=== PATIENT | female | born 1985 | race Caucasian/White ===

== ENCOUNTER 2018-11-27 03:09 | Emergency (ER) | payer OTHER ==
[~2018-11-27] VITALS: Ht 154.9 cm; Wt 74.4 kg
--- OUTSIDE RECORDS SUMMARY | ~2018-11-27 | XMS | Encounter Summary ---
Demographics + + + | Address | [address] | | | [place] [address] | + + + | Home Phone | | + + + | Preferred Language | Unknown | + + + | Marital Status | Single | + + + | Jewish Affiliation | NON | + + + | Race | White | + + + | Ethnic Group | Not or | + + + Author + + + | Author | [facility] | + + + | Organization | [facility] | + + + | Address | Unknown | + + + | Phone | Unavailable | + + + Support + + +---------+ + | Name | Relationship | Address | Phone | + + +---------+ + | Nancy Nesbitt | ECON | Unknown | | + + +---------+ + Care Team Providers + +------+ + | Care Guest Relations Agent Name | Role | Phone | + +------+ + | Renard Easley DO | PCP | | + +------+ + Reason for Visit + + + | Reason | Comments | + + + | Pre-operative | | | evaluation | | + + + Encounter Details +--------+---------+ + + + | Date | Type | Department | Care Team | Description | +--------+---------+ + + + | 03/26/ | Office | Neurosurgery at | Nehal Lloyd MD | MS (multiple | | 2010 | Visit | [facility] [address] | [address] | sclerosis) ([facility]); | | | | Ave Mailcode: [address] | [place], [place] | Trigeminal neuralgia | | | | [facility] | [address] | | | | | and Healing, | [phone] | | | | | [facility] | | | | | | Floor [facility] [place] | | | | | | [address] | | | | | | [phone] | | | +--------+---------+ + + + Social History + +-------+ +--------+------+ | Tobacco Use | Types | Packs/Day | Years | Date | | | | | Used | | + +-------+ +--------+------+ | Current Every Day | | 0.5 | | | | Smoker | | | | | + +-------+ +--------+------+ + +---+---+---+ | Smokeless Tobacco: | | | | | Never Used | | | | + +---+---+---+ + + +---------+ + | Alcohol Use | Drinks/Week | oz/Week | Comments | + + +---------+ + | No | | | | + + +---------+ + + + + | Sex Assigned at | Date Recorded | | | | + + + | Not on file | | + + + + + + + | Job Start Date | Occupation | Industry | + + + + | Not on file | Not on file | Not on file | + + + + + + + + | Travel History | Travel Start | Travel End | + + + + + + | No recent travel history available. | + + documented as of this encounter Last Filed Vital Signs + + + + + | Vital Sign | Reading | Time Taken | Comments | + + + + + | Blood Pressure | 140/97 | 03/26/2010 1:20 PM | | | | | PST | | + + + + + | Pulse | 114 | 03/26/2010 1:20 PM | | | | | PST | | + + + + + | Temperature | - | - | | + + + + + | Respiratory Rate | 14 | 03/26/2010 1:20 PM | | | | | PST | | + + + + + | Oxygen Saturation | - | - | | + + + + + | Inhaled Oxygen | - | - | | | Concentration | | | | + + + + + | Weight | 105.2 kg (232 lb) | 03/26/2010 1:20 PM | | | | | PST | | + + + + + | Height | 162.6 cm (5' 4") | 03/26/2010 1:20 PM | | | | | PST | | + + + + + | Body Mass Index | 39.82 | 03/26/2010 1:20 PM | | | | | PST | | + + + + + documented in this encounter Progress Notes Mary Hallman MD - 03/26/2010 5:05 PM PSTMrs. Marques Gallego comes in today for a preoperative evaluation for right RFL for V2 trigeminal neuralgia due to MS. Her questions regarding the procedure, hospital stay have been answered. I have discussed the risks of the percutaneous radiofrequency trigeminal gangliolysis (PRTG ), also known as the radiofrequency lesion (RFL), procedure with the patient at length. Th e goal of the procedure is to reduce or eliminate the trigeminal neuralgia. The risks inclu de bleeding, increased neurologic deficit, sensory loss, anesthesia dolorosa, corneal kerati tis, and failure to relieve the pain. The patient understands and accepts these risks, and after all questions were answered, wished to proceed with the operation. She has been consented and is ready for the procedure. documented in this encounter Plan of Treatment Not on filedocumented as of this encounter Visit Diagnoses + + | Diagnosis | + + | MS (multiple sclerosis) (HCC) Multiple sclerosis | + + | Trigeminal neuralgia | + + documented in this encounter
--- OUTSIDE RECORDS SUMMARY | ~2018-11-27 | XMS | Encounter Summary ---
Demographics + + + | Address | [address] | | | [place] [address] | + + + | Home Phone | | + + + | Preferred Language | Unknown | + + + | Marital Status | Single | + + + | Gnosticist Affiliation | NON | + + + | Race | White | + + + | Ethnic Group | Not or | + + + Author + + + | Author | [facility] | + + + | Organization | [facility] | + + + | Address | Unknown | + + + | Phone | Unavailable | + + + Support + + +---------+ + | Name | Relationship | Address | Phone | + + +---------+ + | Nancy Nesbitt | ECON | Unknown | | + + +---------+ + Care Team Providers + +------+ + | Care Equipment Associate Name | Role | Phone | + +------+ + | Renard Easley DO | PCP | | + +------+ + Reason for Visit + + + | Reason | Comments | + + + | Headache | | + + + Encounter Details +--------+ + + + + | Date | Type | Department | Care Team | Description | +--------+ + + + + | 04/17/ | Telephone | Neurosurgery at | Nehal Lloyd MD | Headache | | 2010 | | [facility] [address] | [address] | | | | | Ave Mailcode: [address] | [place], [place] | | | | | [facility] | [address] | | | | | and Healing, | [phone] | | | | | [facility] , 8th | | | | | | Floor [place], [place] | | | | | | [address] | | | | | | [phone] | | | +--------+ + + + + Social History + +-------+ [...] + + documented as of this encounter Plan of Treatment Not on filedocumented as of this encounter Visit Diagnoses Not on filedocumented in this encounter"
--- OUTSIDE RECORDS SUMMARY | ~2018-11-27 | XMS | Encounter Summary ---
Demographics + + + | Address | [address] | | | [place] [address] | + + + | Home Phone | | + + + | Preferred Language | Unknown | + + + | Marital Status | Single | + + + | Shinto Affiliation | NON | + + + | Race | White | + + + | Ethnic Group | Not or | + + + Author + + + | Author | [facility] | + + + | Organization | [facility] | + + + | Address | Unknown | + + + | Phone | Unavailable | + + + Support + + +---------+ + | Name | Relationship | Address | Phone | + + +---------+ + | Nancy Nesbitt | ECON | Unknown | | + + +---------+ + Care Team Providers + +------+ + | Care Sap Data Architect Name | Role | Phone | + [...] | | | Ave Mailcode: [address] | [place], [place] | | | | | [facility] | [address] | | | | | and Healing, | [phone] | | | | | [facility] , [address]th | | | | | | Floor [place], [place] | | | | | | [address] | | | | | | [phone] | | | +--------+ + + + [...]
--- OUTSIDE RECORDS SUMMARY | ~2018-11-27 | XMS | Clinical Summary ---
Demographics + + + | Address | [address] | | | [place] [address] | + + + | Home Phone | | + + + | Preferred Language | Unknown | + + + | Marital Status | Single | + + + | Mormon Affiliation | Unknown | + + + | Race | Unknown | + + + | Ethnic Group | Unknown | + + + Author + + + | Author | [facility] [employer] (Historical as of | | | 09-30-18) | + + + | Organization | [facility] [employer] (Historical as of | | | 09-30-18) | + + + | Address | Unknown | + + + | Phone | Unavailable | + + + Support + + +---------+ + | Name | Relationship | Address | Phone | + + +---------+ + | Sheila Zee | ECON | Unknown | | + + +---------+ + Care Team Providers + +------+ + | Care Senior Analyst Market Intelligence Name | Role | Phone | + +------+ + | Jose Guadalupe Easley DO | PP | | + +------+ + Allergies + + + + + + | Active Allergy | Reactions | Severity | Noted | Comments | | | | | Date | | + + + + + + | Baclofen | Rash | Medium | 08/30/19 | | | | | | 15 | | + + + + + + | Prochlorperazine | Anxiety | Low | 04/29/19 | | | | | | 17 | | + + + + + + | Penicillins | Other (See Comments) | Medium | 08/30/19 | Childhood allergy | | | | | 15 | | + + + + + + | Metoclopramide | Other (See Comments) | Medium | 03/03/19 | Panic attack per | | | | | 15 | patient | + + + + + + Current Medications + + +---------+---------+------+------+-------+ | Prescription | Sig. | Disp. | Refills | Star | End | Statu | | | | | | t | Date | s | | | | | | Date | | | + + +---------+---------+------+------+-------+ | | Take 1 tablet by | | | | | Activ | | levonorgestrel-ethin | mouth daily. | | | | | e | | yl estradiol | | | | | | | | (LYBREL) 90-20 MCG | | | | | | | | per tablet | | | | | | | + + +---------+---------+------+------+-------+ | Cholecalciferol | Take by mouth. | | | | | Activ | | (VITAMIN D-3) 5000 | | | | | | e | | UNITS TABS | | | | | | | + + +---------+---------+------+------+-------+ | ibuprofen (MOTRIN) | Take 800 mg by mouth | | | | | Activ | | 800 MG tablet | every 6 (six) hours | | | | | e | | | as needed for Pain. | | | | | | + + +---------+---------+------+------+-------+ | gabapentin | take UP TO 3 | 270 | 5 | 03/1 | | Activ | | (NEURONTIN) 300 MG | capsules by mouth | capsule | | 1/20 | | e | | capsule | three times a day | | | 19 | | | + + +---------+---------+------+------+-------+ | fingolimod | Take 1 capsule by | 30 | 5 | 06/1 | | Activ | | (GILENYA) 0.5 mg | mouth daily. | capsule | | 7/20 | | e | | capsule | | | | 19 | | | + + +---------+---------+------+------+-------+ | traMADol (ULTRAM) | Take 1 tablet by | 30 | 2 | 06/1 | | Activ | | 50 MG tablet | mouth every 6 (six) | tablet | | 7/20 | | e | | | hours as needed for | | | 19 | | | | | Pain. | | | | | | + + +---------+---------+------+------+-------+ | tiZANidine | take 2 tablets by | 60 | 4 | 07/15 | | Activ | | (ZANAFLEX) 4 MG | mouth NIGHTLY | tablet | | 10/03 | | e | | tablet | | | | 19 | | | + + +---------+---------+------+------+-------+ Active Problems Not on file Family History + +------+--------+ + | Relation | Name | Status | Comments | + +------+--------+ + | Father | | Alive | | + +------+--------+ + | Mother | | Alive | | + +------+--------+ + Social History + +-------+ +--------+------+ | Tobacco Use | Types | Packs/Day | Years | Date | | | | | Used | | + +-------+ +--------+------+ | Current Every Day | | 0.25 | 15 | | | Smoker | | | | | + +-------+ +--------+------+ + +---+---+---+ | Smokeless Tobacco: | | | | | Never Used | | | | + +---+---+---+ + + | Tobacco Cessation: Ready to Quit: No | + + + + +---------+ + | Alcohol Use | Drinks/We | oz/Week | Comments | | | ek | | | + + +---------+ + | No | | | | + + +---------+ + + + + | Sex Assigned at | Date Recorded | | | | + + + | Not on file | | + + + Last Filed Vital Signs + + + + | Vital Sign | Reading | Time Taken | + + + + | Blood Pressure | 131/89 | 07/31/2018 1:05 PM PDT | + + + + | Pulse | 67 | 07/31/2018 1:05 PM PDT | + + + + | Temperature | 37.2 C (99 F) | 11/10/2015 1:00 PM PDT | + + + + | Respiratory Rate | 18 | 11/10/2015 1:00 PM PDT | + + + + | Oxygen Saturation | 99% | 07/31/2018 1:05 PM PDT | + + + + | Inhaled Oxygen | - | - | | Concentration | | | + + + + | Weight | 75 kg (165 lb 4.8 | 07/31/2018 1:05 PM PDT | | | oz) | | + + + + | Height | 154.9 cm (5' 1") | 07/31/2018 1:05 PM PDT | + + + + | Body Mass Index | 31.23 | 07/31/2018 1:05 PM PDT | + + + + Plan of Treatment +--------+---------+ + + + | Date | Type | Specialty | Care Team | Description | +--------+---------+ + + + | 01/30/ | Office | | Lillie Pace, | | | 2018 | Visit | | [facility] | | | | | | [place] | | | | | | [address] | | | | | | | | +--------+---------+ + + + + + + + + | Health Maintenance | Due Date | Last Done | Comments | + + + + + | Vaccine: | | | | | Pneumococcal 19-64 | 4 | | | | (PPSV23 only) Medium | | | | | Risk (1 of 1 - | | | | | PPSV23) | | | | + + + + + | Cervical Cancer | | | | | Screening (Pap) | 5 | | | + + + + + | Vaccine: Influenza | | 11/25/2017 | | | (#1) | 9 | | | + + + + + | Vaccine: | | 03/02/2018, 09/17/1997 | | | Dtap/Tdap/Td (3 - | 9 | | | | Td) | | | | + + + + + Results Not on filefrom Last 3 Months Insurance + +--------+ +------+-------+ + | Payer | Benefi | Subscriber | Type | Phone | Address | | | t Plan | ID | | | | | | / | | | | | | | Group | | | | | + +--------+ +------+-------+ + | MEDICAID | JAEER | [id number] | | | [address] | | | [place] | | | | [place] | | | [place] | | | | [address] | | | 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
--- OUTSIDE RECORDS SUMMARY | ~2018-11-27 | XMS | Encounter Summary ---
Demographics + + + | Address | [address] | | | [place] [address] | + + + | Home Phone | | + + + | Preferred Language | Unknown | + + + | Marital Status | Single | + + + | Jehovah'S Witness Affiliation | Unknown | + + + | Race | Unknown | + + + | Ethnic Group | Unknown | + + + Author + + + | Author | [facility] | | | and [place] | + + + | Organization | [facility] | | | and [place] | + + + | Address | Unknown | + + + | Phone | Unavailable | + + + Support + + +---------+ + | Name | Relationship | Address | Phone | + + +---------+ + | Sheila Zee | ECON | Unknown | | + + +---------+ + Care Team Providers + +------+ + | Care Food Assembler Name | Role | Phone | + +------+ + | Renard Easley DO | PCP | | + +------+ + Reason for Visit +--------+ + | Reason | Comments | +--------+ + | Other | numbness in L foot/leg | +--------+ + Encounter Details +--------+---------+ + + + | Date | Type | Department | Care Team | Description | +--------+---------+ + + + | 09/05/ | Office | [facility] [facility] | Nicolle, | Right leg numbness | | 2019 | Visit | [facility] | Dilip, [address] | (Primary Dx); MS | | | | [facility] [address] [place] | (multiple sclerosis) | | | | [address] [place], | [place] [address] | (HCC) | | | | [place] [address] | [phone] | | | | | [phone] | | | +--------+---------+ + + + Social History + + + +--------+------+ | Tobacco Use | Types | Packs/Day | Years | Date | | | | | Used | | + + + +--------+------+ | Current Some Day | Cigarettes | 0.25 | 6 | | | Smoker | | | | | + + + +--------+------+ + +---+---+---+ | Smokeless Tobacco: | | | | | Never Used | | | | + +---+---+---+ + + | Tobacco Cessation: Ready to Quit: No; Counseling Given: No | + + + + +---------+ [...] + + + | Blood Pressure | 118/68 | 09/05/20181558 PDT | + + + + | Pulse | 71 | 09/05/20181558 PDT | + + + + | Temperature | 36.6 C (97.8 F) | 09/05/20181558 PDT | + + + + | Respiratory Rate | 16 | 09/05/20181558 PDT | + + + + | Oxygen Saturation | 100% | 09/05/20181558 PDT | + + + + | Inhaled Oxygen | - | - | | Concentration | | | + + + + | Weight | - | - | + + + + | Height | - | - | + + + + | Body Mass Index | - | - | + + + + documented in this encounter Progress Notes Dilip Valverde, BEBO - 09/05/2018 1600 PDTFormatting of this note might be different f rom the original. Chief Complaint Patient presents with Other numbness in L foot/leg Assessment 1. Right leg numbness - gabapentin (NEURONTIN) 600 MG tablet; 2 tabs PO TID Dispense: 180 tablet; Refill: 4 2. MS (multiple sclerosis) ([facility]) - gabapentin (NEURONTIN) 600 MG tablet; 2 tabs PO TID Dispense: 180 tablet; Refill: 4 Plan Patient will try increased dose of gabapentin until her next neurology appointment Subjective: Patient ID: Marques Gallego is a 33 y.o. female who is new to me, presents with compl aints of numbness, pins and needles in her right lower leg. Patient stated that she has been having this for years and the numbness is radiating from her foot up through her calf. She has a diagnosis of MS and is being managed by a neurologist in [place], [place]. She stated th at she has not discussed this with her but is due for a follow-up visit in January. She st ated that she is on gabapentin but this dose is not helping her. Objective: BP 118/68 | Pulse 71 | Temp 36.6 C (97.8 F) (Temporal) | Resp 16 | SpO2 100% Physical Exam Constitutional: She appears well-developed. Cardiovascular: Normal heart sounds. Musculoskeletal: Right lower leg: She exhibits tenderness. Legs: Neurological: She is alert. Social History Socioeconomic History Marital status: Single Spouse name: Not on file Number of children: Not on file Years of education: Not on file Highest education level: Not on file Social Needs Financial resource strain: Not on file Food insecurity - worry: Not on file Food insecurity - inability: Not on file Transportation needs - medical: Not on file Transportation needs - non-medical: Not on file Occupational History Not on file Tobacco Use Smoking status: Current Some Day Smoker Packs/day: 0.25 Years: 6.00 Pack years: 1.50 Types: Cigarettes Smokeless tobacco: Never Used Substance and Sexual Activity Alcohol use: No Drug use: Yes Types: Marijuana Comment: Smoking Sexual activity: Not Currently Partners: Male control/protection: Pill Other Topics Concern Not on file Social History Narrative Not on file Past Medical History: Diagnosis Date Anemia Hydronephrosis, left Left-sided trigeminal neuralgia MS (multiple sclerosis) (HCC) Nephrolithiasis Opioid dependence (HCC) Orthostatic hypotension Paronychia of right middle finger Tobacco dependence Allergies Allergen Reactions Baclofen Rash Metoclopramide Other (See Comments) Panic attack per patient Penicillins Other (See Comments) Don't know Prochlorperazine Anxiety Electronically signed by BEBO Gonzales 09/05/2018 16:50 Note: Part of this report was transcribed using voice recognition software. Every effort wa s made to ensure accuracy. However, inadvertent computerized fisher dip net errors may be pre sent documented in this encounter Plan of Treatment +--------+---------+ + + + | Date | Type | Specialty | Care Team | Description | +--------+---------+ + + + | 01/30/ | Office | Neurology | Lillie Pace, | | | 2018 | Visit | | [facility] | | | | | | [address] | | | | | | [place] [address] | | | | | | [phone] | | | | | | | | +--------+---------+ + + + documented as of this encounter Visit Diagnoses + + | Diagnosis | + + | Right leg numbness - Primary Disturbance of skin sensation | + + | MS (multiple sclerosis) (HCC) Multiple sclerosis | + + documented in this encounter"
--- OUTSIDE RECORDS SUMMARY | ~2018-11-27 | XMS | Encounter Summary ---
Demographics + + + | Address | [address] | | | [place] [address] | + + + | Home Phone | | + + + | Preferred Language | Unknown | + + + | Marital Status | Single | + + + | Sikh Affiliation | Unknown | + + + | Race | Unknown | + + + | Ethnic Group | Unknown | + + + Author + + + | Author | [facility] | | | and [place] | + + + | Organization | [facility] | | | and [...] Team Providers + +------+ + | Care Credit Union Examiner Name | Role | Phone | + +------+ + | Renard Easley DO | PCP | | + +------+ + Reason for Visit + + + | Reason | Comments | + + + | Referral (Follow up) | | + + + Encounter Details +--------+ + + + + | Date | Type | Department | Care Team | Description | +--------+ + + + + | 10/11/ | Telephone | [facility] [facility] | Renard Easley | Referral (Follow up) | | 2019 | | [facility] | E, DO [address] | | | | | [facility] [address] | [place], [place] | | | | | [address] [place], | [address] | | | | | [place] [address] | [phone] | | | | | [phone] | | | +--------+ + + + + Social History + + [...] as of this encounter Plan of Treatment +--------+---------+ + + + | Date | Type | Specialty | Care Team | Description | +--------+---------+ + + + | 01/30/ | Office | Neurology | Lillie Pace, | | | 2019 | Visit | | [facility] | | | | | | [address] | | | | | | [place] [address] | | | | | | [phone] | | | | | | | | +--------+---------+ + + + documented as of this encounter Visit Diagnoses Not on filedocumented in this encounter"
--- OUTSIDE RECORDS SUMMARY | ~2018-11-27 | XMS | Encounter Summary ---
Demographics + + + | Address | [address] | | | [place] [address] | + + + | Home Phone | | + + + | Preferred Language | Unknown | + + + | Marital Status | Single | + + + | Buddhism Affiliation | Unknown | + + + | Race | Unknown | + + + | Ethnic Group | Unknown | + + + Author + + + | Author | [facility] | | | and [place] | + + + | Organization | [facility] | | [...] Team Providers + +------+ + | Care Application Chemist Name | Role | Phone | + +------+ + | Renard Easley DO | PCP | | + +------+ + Encounter Details +--------+ + + + + | Date | Type | Department | Care Team | Description | +--------+ + + + + | 09/29/ | Orders Only | [facility] | Jame Saini, | Multiple sclerosis | | 2019 | | NEUROLOGY [address] | ([facility]); Lumbago with | | | | [address] | sciatica | | | | [place], [place] | [place] [address] | | | | | [address] | [phone] | | | | | [phone] | | | +--------+ + + + [...] | | | | | | [address] | | | | | | [place] [address] | | | | | | [phone] | | | | | | | | +--------+---------+ + + + + +--------+ + + | Name | Priori | Associated Diagnoses | Order Schedule | | | ty | | | + +--------+ + + | CBC with Differential | Routin | Multiple sclerosis | Expected: | | | e | (HCC) | 01/02/2018, Expires: | | | | | 01/02/2019 | + +--------+ + + | Hepatic Function Panel | Routin | Multiple sclerosis | Expected: | | | e | (HCC) | 01/02/2018, Expires: | | | | | 01/02/2019 | + +--------+ + + | CBC with Differential | Routin | Multiple sclerosis | 6 Occurrences | | | e | (HCC) Adrien with | starting 09/29/2018 | | | | sciatica | until 08/01/2019 | + +--------+ + + | Hepatic Function Panel | Routin | Multiple sclerosis | 6 Occurrences | | | e | (HCC) Lumbago with | starting 09/29/2018 | | | | sciatica | until 08/01/2019 | + +--------+ + + documented as of this encounter Visit Diagnoses + + | Diagnosis | + + | Multiple sclerosis (HCC) Multiple sclerosis | + + | Lumbago with sciatica Sciatica | + + documented in this encounter"
--- OUTSIDE RECORDS SUMMARY | ~2018-11-27 | XMS | Encounter Summary ---
Demographics + + + | Address | [address] | | | [place] [address] | + + + | Home Phone | | + + + | Preferred Language | Unknown | + + + | Marital Status | Single | + + + | Muslim Affiliation | NON | + + + | Race | White | + + + | Ethnic Group | Not or | + + + Author + + + | Author | [facility] | + + + | Organization | [facility] | + + + | Address | Unknown | + + + | Phone | Unavailable | + + + Support + + +---------+ + | Name | Relationship | Address | Phone | + + +---------+ + | Nancy Nesbitt | ECON | Unknown | | + + +---------+ + Care Team Providers + +------+ + | [employer] Psychologist Name | Role | Phone | + +------+ + | Renard Easley DO | PCP | | + +------+ + Reason for Visit + + + | Reason | Comments | + + + | Pre-op evaluation | | + + + Encounter Details +--------+---------+ + + + | Date | Type | Department | Care Team | Description | +--------+---------+ + + + | 03/26/ | Office | Preoperative | Darien Yoon, | Trigeminal neuralgia | | 2010 | Visit | Medicine Clinic at | [facility]P [address] | (Primary Dx); Other | | | | [facility] 4th Floor [address] | specified | | | | [address] | [place], [place] | pre-operative | | | | Mailcode: CH4S | [address] | examination; MS | | | | [facility] | [phone] | (multiple sclerosis) | | | | and Healing, | | (HCC); Morbid | | | | Building 1,4th Floor | | obesity ([facility]) | | | | [place], [place] | | | | | | [address] | | | | | | [phone] | | | +--------+---------+ + + + [...] + + + | Blood Pressure | 137/96 | 03/26/2010 2:43 PM | | | | | PST | | + + + + + | Pulse | 82 | 03/26/2010 2:43 PM | | | | | PST | | + + + + + | Temperature | 36.4 C (97.5 F) | 03/26/2010 2:43 PM | | | | | PST | | + + + + + | Respiratory Rate | 14 | 03/26/2010 2:43 PM | | | | | PST | | + + + + + | Oxygen Saturation | 98% | 03/26/2010 2:43 PM | | | | | PST | | + + + + + | Inhaled Oxygen | - | - | | | Concentration | | | | + + + + + | Weight | 105.2 kg (232 lb) | 03/26/2010 2:43 PM | | | | | PST | | + + + + + | Height | 152.4 cm (5') | 03/26/2010 2:43 PM | | | | | PST | | + + + + + | Body Mass Index | 45.31 | 03/26/2010 2:43 PM | | | | | PST | | + + + + + documented in this encounter Patient Instructions Patient Instructions Darien Singh - 03/26/2010 3:02 PM PSTPREOPERATIVE INSTRUCTION S Do not eat or drink anything after midnight the night before surgery. These are your medications: ERGOCALCIFEROL, VITAMIN D2, (VITAMIN D ORAL), Take 4,000 mg by mouth once daily. HYDROcodone-acetaminophen 10-325 mg Oral Tablet, Take 1 Tab by mouth every four hours as ne eded. Not to exceed 12 tablets per any 24 hour period. (Not to exceed 4000 mg of acetaminoph en from all products per 24 hour period.) INTERFERON BETA-1A/ALBUMIN (AVONEX IM), Inject 0.5 mg into the muscle (IM) every seven days . Levonorgestrel-Ethinyl Estrad (LYBREL) 90-20 mcg Oral Tablet, Take by mouth once daily. On the morning of your procedure DO TAKE your usual morning dose of PAIN MEDICATION with a sip of water. Do not take any Aspirin, vitamin E or non-steroidal anti-inflammatory (NSAIDs i.e. Advil , Aleve, Ibuprofen) or herbal supplements seven days prior to your surgery. These drugs may interfere with normal blood clotting and may cause excessive bleeding and bruising during or after the surgery. Please see the list below for more products that contain Aspirin, Ibupro fen, or Vitamin E If you are taking Coumadin (warfarin), Plavix or any other blood thinners please let you r surgical team know as medication changes will be necessary. If you need a pain medication for general purposes, use Tylenol as directed. If you are in doubt about any medications that you are taking, please contact our office . AVOID THESE MEDICATIONS FOR 7 DAYS BEFORE SURGERY PRODUCTS CONTAINING ASPIRIN OR NON-STEROIDAL ANTI-INFLAMMATORY DRUGS (NSAIDs) Advil, Aleve, [place], Anacin, Arthopan, Ascriptin, Aspergum, Aspirin with and without codeine, Mati aspirin. Bufferin, Butalbital, Butazone, Cataflam, Clinoril, Co-Advil, Coges ic, Darvon, Daypro, Diclofenac, Diflunisal, Dipyridamole, Disalcid, Salvador s, Dolene, Dolobi d, Easpirin, Etodolac, Feldene, Fenoprofen, Ibuprofen, Indocin, Indomethacin, Lodine, Meclof enamate, Menadol, Meprobamate/Aspirin, Midol, Motrin and Motrin IB, Nabumetone, Naproxen, No rgesic, Nuprin, Nytol, Nyquil, Orudis, Oruvail, Oxycodone and aspirin, Oxyphenbutazone, Pamp rin, Pepto Bismol, Percodan, Persantine, Phenylbutazone, Piroxicam, Propoxyphene, Relafen, R obomol, Rufen, Sine-aid, [place] s cold tablets, Sulindac, Talwin, Tolectin, Triaminici n, Trigesic, Voltaren, Zorprin. OTHER PRODUCTS WHICH MAY PROMOTE BLEEDING Vitamin E, Gingko Biloba Important Guidelines Please do not to shave the surgical site at home before the surgery Do not smoke, drink alcohol or use recreational drugs for 24 hours before your surgery Do not eat any hard candy or chew gum after midnight the night before your surgery. Watch for any change in your health condition. Let your surgeon know right away if you do not feel well. Body hygiene: Take a bath or shower and remember to shampoo your hair using your usual hair product before your arrival at the hospital. Body hygiene -- Hibiclens bath/shower bathe or shower the evening before and the mor kevin of your surgery. Use the bottle of Hibiclens soap for each cleansing. Wash from yo ur neck to your toes. BE CAREFUL NOT TO WASH YOUR FACE OR HAIR WITH THIS SOLUTION. Shampoo your hair using your usual hair product before your arrival at the hospital. Dental hygiene: Please remember to brush your teeth the night before and the morning of your procedure. Do not wear makeup, perfume, lotions or powder. Remove any nail maltese from at least one fingernail. Do not wear any jewelry to the hospital. Wear loose, comfortable clothing. Bring the case and solution for your contact lenses or wear your glasses. Leave all your valuables at home. Allow enough travel time so you re not late for your check in for surgery. Pain management after surgery Following surgery, at regular intervals, your nurse will ask you to rate your pain on a scale of 0-10 (0 is no pain and 10 is the worst pain you can imagine). A variety of pain management strategies may be appropriate, such as intravenous medicati ons, oral medications, peripheral nerve bocks or epidural catheters that can deliver local a nesthetic to cover the area of your surgical incision. Please discuss this with your anesth esiologist to receive additional information about what might be appropriate for you. The goal for pain control therapy is to be comfortable enough to change your position, c ough and take deep breaths. You will be asked to do such activities to help prevent complic ations. Things to do after surgery (hospitalized patients) Use an incentive spirometer or peep breathe to keep your lungs working properly an d to help prevent respiratory complications. It helps you take long, deep breaths. Use it at least once every hour while you are awake. Leg and feet exercises will maintain good circulation and help prevent blood clots in yo ur legs. Sometimes your doctor will order air compression stockings. Compressed air helps the circulation in your legs. Walking and moving will help stimulate normal circulation and deep breathing. After you r surgery, your nurse may ask you to sit, stand or walk. Check in locations Day Stay Unit [phone], [place] [address], fourth floor Room 4519 Check-in times for Hospital Admissions are not available until the day prior to surgery. So meone from your surgeon's office or the hospital will contact you with your check in time. I f you do not hear from anyone by 3:00 PM please call your surgeons' office for [id number] . Going Home Your surgeon will decide when you are medically ready to go home. If you are released to go home on the same day as your procedure/surgery please note the following: You will not be competent to drive and will require someone else to transport y ou home on the day of discharge since pain medications and physical activity restrictions li chandler your ability to drive safely. It is also required that you have someone assist you and look after you on the first night after you have undergone regional blocks, deep sedation, a nd/or general anesthesia. If you stayed in the hospital after surgery, please arrange for your ride to come for yo u around 9AM on the day your doctor says you can go home. Check out time is 11AM. If you have questions or concerns after you go home, call your doctor s office. If it is after office hours, call the [facility] pressure test operator at [phone] and ask them to page your doc tor. You will require transportation home on the day of discharge. Pain medications and physi rene activity restrictions may limit your ability to drive safely. It is also recommended th at you have someone assist you and look after you on the first night after you are released to go home. documented in this encounter Progress Notes Whitney Brennan MA - 03/26/2010 3:05 PM PSTVenipuncture performed in clinic, blood sloan ple obtained from Right antecubital site Hemoglobin A1C POCT performed during clinic visit. Blood sample obtained from venipuncture performed to obtain other lab tests. Darien Lombardo - 03/26/2010 2:54 PM Lukas Babb Julián was evaluated today in Preoperative Medicin e Clinic for her scheduled procedure. Marques Gallego does not require further medical optimization or risk stratification, and can proceed to surgery as scheduled according to A ONEIL guidelines. Please see scanned Preop H & P in the "Media" tab under ANESTHESIA PREOP EVALUATION. JOSEPH TILLMAN [facility] PREOPER[facility] [address] [address] documented in this e ncounter Plan of Treatment Not on filedocumented as of this encounter Procedures + +--------+ + + + | Procedure Name | Priori | Date/Time | Associated Diagnosis | Comments | | | ty | | | | + +--------+ + + + | HEMOGLOBIN A1C, POC | Routin | 03/26/2010 | Other specified | Results for this | | | e | 3:09 PM | pre-operative | procedure are in the | | | | PST | examination | results section. | + +--------+ + + + | NC COLLECTION VENOUS | Routin | 03/26/2010 | Other specified | | | BLOOD,VENIPUNCTURE | e | 3:05 PM | pre-operative | | | | | PST | examination | | + +--------+ + + + | INR | Routin | 03/26/2010 | Other specified | Results for this | | | e | 2:57 PM | pre-operative | procedure are in the | | | | PST | examination | results section. | + +--------+ + + + | BASIC METABOLIC SET | Routin | 03/26/2010 | Other specified | Results for this | | (NA, K, CL, TCO2, | e | 2:57 PM | pre-operative | procedure are in the | | BUN, CR, GLU, CA) | | PST | examination | results section. | + +--------+ + + + | CBC ONLY | Routin | 03/26/2010 | Other specified | Results for this | | | e | 2:57 PM | pre-operative | procedure are in the | | | | PST | examination | results section. | + +--------+ + + + documented in this encounter Results HEMOGLOBIN A1C, POC (03/26/2010 3:09 PM PST) + +-------+ + + + | Component | Value | Ref Range | Performed | Pathologist | | | | | At | Signature | + +-------+ + + + | HEMOGLOBIN | 5.7 | 4.0 - 5.7 | [facility], | | | A1C,POC | | | POINT OF | | | | | | CARE TESTS | | + +-------+ + + + + + | Specimen | + + | Blood | + + + + + + + | Performing | Address | City/State/Zipcode | Phone Number | | Organization | | | | + + + + + | [facility] | [address] | [place] [address] | | | OF CARE TESTS | | | | + + + + + INR (03/26/2010 2:57 PM PST) + + + + + + | Component | Value | Ref Range | Performed | Pathologist | | | | | At | Signature | + + + + + + | INR | 0.98Comment: | 0.90 - 1.20 INR | [facility] | | | | INR Therapeutic ranges | | DEPARTMENT | | | | for full | | OF | | | | anticoagulation: | | PATHOLOGY | | | | INR for Venous | | | | | | Thromboembolism | | | | | | (2.0-3.0) | | | | | | INR INR for most | | | | | | patients with mech. | | | | | | valves (2.5-3.5) | | | | | | INR | | | | + + + + + + + + | Specimen | + + | Blood - Blood | + + + + + + + | Performing | Address | City/State/Zipcode | Phone Number | | Organization | | | | + + + + + | [facility] | [address] | [place] [address] | | | PATHOLOGY | [address] | | | + + + + + BASIC METABOLIC SET (NA, K, CL, TCO2, BUN, CR, GLU, CA) (03/26/2010 2:57 PM PST) + + + + + + | Component | Value | Ref Range | Performed | Pathologist | | | | | At | Signature | + + + + + + | GLUCOSE, | 142 (H) | 60 - 99 mg/dL | [facility] | | | PLASMA | | | DEPARTMENT | | | (LAB) | | | OF | | | | | | PATHOLOGY | | + + + + + + | BUN, PLASMA | 5 (L) | 6 - 20 mg/dL | [facility] | | | (LAB) | | | DEPARTMENT | | | | | | OF | | | | | | PATHOLOGY | | + + + + + + | CREATININE | 0.46 (L) | 0.60 - 1.10 | [facility] | | | PLASMA | | mg/dL | DEPARTMENT | | | (LAB) | | | OF | | | | | | PATHOLOGY | | + + + + + + | SODIUM, | 136 | 134 - 143 | [facility] | | | PLASMA | | mmol/L | DEPARTMENT | | | (LAB) | | | OF | | | | | | PATHOLOGY | | + + + + + + | POTASSIUM, | 3.5 | 3.4 - 5.0 | [facility] | | | PLASMA | | mmol/L | DEPARTMENT | | | (LAB) | | | OF | | | | | | PATHOLOGY | | + + + + + + | CHLORIDE, | 104 | 97 - 108 mmol/L | [facility] | | | PLASMA | | | DEPARTMENT | | | (LAB) | | | OF | | | | | | PATHOLOGY | | + + + + + + | TOTAL CO2, | 24Comment: New Total | 22 - 29 mmol/L | [facility] | | | PLASMA | CO2 reference range | | DEPARTMENT | | | (LAB) | effective 01/06/10. | | OF | | | | | | PATHOLOGY | | + + + + + + | CALCIUM, | 9.1 | 8.6 - 10.2 | [facility] | | | PLASMA | | mg/dL | DEPARTMENT | | | (LAB) | | | OF | | | | | | PATHOLOGY | | + + + + + + | EGFR | > 60 | >60 mL/min | [facility] | | | - | | | DEPARTMENT | | | FAROESE | | | OF | | | | | | PATHOLOGY | | + + + + + + | EGFR NON | > 60Comment: GFR is | >60 mL/min | [facility] | | | -EREN | estimated using the MDRD | | DEPARTMENT | | | RICAN | equation recommended by | | OF | | | | theNational Kidney | | PATHOLOGY | | | | Disease Education | | | | | | Program. Estimated GFR | | | | | | Interpretive | | | | | | Information: <60 | | | | | | mL/min/1.73 sq m | | | | | | Chronic Kidney Disease | | | | | | <15 mL/min/1.73 sq m | | | | | | Kidney Failure | | | | | | Estimated GFR greater | | | | | | than 60mL/min/1.73 is of | | | | | | limited clinical Value. | | | | | | The MDRD equation is | | | | | | not valid in the | | | | | | following situations: - | | | | | | Patients under 18 years | | | | | | of age - Severe | | | | | | malnutrition or obesity | | | | | | - Vegetarian diet - | | | | | | Rapidly changing kidney | | | | | | function | | | | + + + + + + | ANION GAP | 8 | 4 - 11 mmol/L | [facility] | | | | | | DEPARTMENT | | | | | | OF | | | | | | PATHOLOGY | | + + + + + + + + | Specimen | + + | Blood - Blood | + + + + + + + | Performing | Address | City/State/Zipcode | Phone Number | | Organization | | | | + + + + + | [facility] | [address] | [place] [address] | | | PATHOLOGY | [address] | | | + + + + + CBC ONLY (03/26/2010 2:57 PM PST) + +-------+ + + + | Component | Value | Ref Range | Performed | Pathologist | | | | | At | Signature | + +-------+ + + + | WHITE CELL | 8.6 | 4.4 - 11.0 K/cu | [facility] | | | COUNT | | mm | DEPARTMENT | | | | | | OF | | | | | | PATHOLOGY | | + +-------+ + + + | RED CELL | 4.46 | 4.00 - 5.20 | [facility] | | | COUNT | | M/cu mm | DEPARTMENT | | | | | | OF | | | | | | PATHOLOGY | | + +-------+ + + + | HEMOGLOBIN | 13.0 | 12.0 - 16.0 | [facility] | | | | | g/dL | DEPARTMENT | | | | | | OF | | | | | | PATHOLOGY | | + +-------+ + + + | HEMATOCRIT | 38.1 | 36.0 - 46.0 % | [facility] | | | | | | DEPARTMENT | | | | | | OF | | | | | | PATHOLOGY | | + +-------+ + + + | MCV | 85.5 | 80.0 - 96.0 fL | [facility] | | | | | | DEPARTMENT | | | | | | OF | | | | | | PATHOLOGY | | + +-------+ + + + | MCHC | 34.1 | 33.4 - 35.5 | [facility] | | | | | g/dL | DEPARTMENT | | | | | | OF | | | | | | PATHOLOGY | | + +-------+ + + + | RDW | 14.5 | 11.5 - 15.0 % | [facility] | | | | | | DEPARTMENT | | | | | | OF | | | | | | PATHOLOGY | | + +-------+ + + + | PLATELET | 294 | 150 - 400 K/cu | [facility] | | | COUNT | | mm | DEPARTMENT | | | | | | OF | | | | | | PATHOLOGY | | + +-------+ + + + + + | Specimen | + + | Blood - Blood | + + + + + + + | Performing | Address | City/State/Zipcode | Phone Number | | Organization | | | | + + + + + | [facility] | [address] | [place] [address] | | | PATHOLOGY | [address] | | | + + + + + documented in this encounter Visit Diagnoses + + | Diagnosis | + + | Trigeminal neuralgia - Primary | + + | Other specified pre-operative examination | + + | MS (multiple sclerosis) (HCC) Multiple sclerosis | + + | Morbid obesity (HCC) Morbid obesity | + + documented in this encounter
--- OUTSIDE RECORDS SUMMARY | ~2018-11-27 | XMS | Encounter Summary ---
Demographics + + + | Address | [address] | | | [place] [address] | + + + | Home Phone | | + + + | Preferred Language | Unknown | + + + | Marital Status | Single | + + + | Rastafari Affiliation | NON | + + + | Race | White | + + + | Ethnic Group | Not or | + + + Author + + + | Author | [facility] | + + + | Organization | [facility] | + + + | Address | Unknown | + + + | Phone | Unavailable | + + + Support + + +---------+ + | Name | Relationship | Address | Phone | + + +---------+ + | Nancy Nesbitt | ECON | Unknown | | + + +---------+ + Care Team Providers + +------+ + | Care Steam Roller Operator Name | Role | Phone | + +------+ + | Renard Easley DO | PCP | | + +------+ + Reason for Referral Consult to [place] (Routine) +--------+--------+ + + + + | Status | Reason | Specialty | Diagnoses / | Referred By | Referred To | | | | | Procedures | Contact | Contact | +--------+--------+ + + + + | Closed | | Neurological | Diagnoses | Bahgat, | [place], | | | | Surgery | Trigeminal | Mary La MD | [address] | | | | | neuralgia | [address] | [address] | | | | | MS (multiple | [facility] | [facility] [place] | | | | | sclerosis) | Rd | [address] | | | | | (HCC) | [place], [place] | Phone: | | | | | Procedures | [address] | [phone] | | | | | REQUEST TO | | Fax: | | | | | SURGERY | | [phone] | | | | | ACOUSTIC SENSOR OPERATOR | | | | | | | GA STEREO | | | | | | | TREAT | | | | | | | TRIGEMINAL | | | | | | | NERVE | | | +--------+--------+ + + + + Reason for Visit + + + | Reason | Comments | + + + | New patient | | | consultation | | + + + | Facial Pain | | + + + Consultation (Routine) +--------+ + + + + + | Status | Reason | Specialty | Diagnoses / | Referred By | Referred To | | | | | Procedures | Contact | Contact | +--------+ + + + + + | Closed | Specialty | Neurological | Diagnoses | Yuniel, | [place] | | | Services | Surgery | Trigeminal | Buddy Don MD | [address] | | | Required | | neuralgia | [facility] | [address] | | | | | Multiple | CLINIC | [place], [place] | | | | | sclerosis | NEUROLOGY | [address] | | | | | ([facility]) INS: | [address] | Phone: | | | | | Family | [address] [facility] | [phone] | | | | | Care/[facility] | [place], [place] | Fax: | | | | | | [address] | [phone] | | | | | | Phone: | | | | | | | [phone] | | | | | | | Fax: | | | | | | | [phone] | | +--------+ + + + + + Encounter Details +--------+---------+ + + + | Date | Type | Department | Care Team | Description | +--------+---------+ + + + | 01/29/ | Office | Neurosurgery at | Nehal Lloyd MD | Trigeminal | | 2009 | Visit | [facility] [address] | [address] | neuralgia; MS | | | | Ave Mailcode: CH8N | [place], [place] | (multiple sclerosis) | | | | [facility] | [address] | ([facility]) | | | | and [facility], | [phone] | | | | | [facility] | | | | | | Floor [place], [place] | | | | | | [address] | | | | | | [phone] | | | +--------+---------+ + + + [...] + + + | Blood Pressure | - | - | | + + + + + | Pulse | - | - | | + + + + + | Temperature | - | - | | + + + + + | Respiratory Rate | - | - | | + + + + + | Oxygen Saturation | - | - | | + + + + + | Inhaled Oxygen | - | - | | | Concentration | | | | + + + + + | Weight | 105.6 kg (232 lb | 01/29/2010 12:06 PM | | | | 14.4 oz) | PST | | + + + + + | Height | 152.4 cm (5') | 01/29/2010 12:06 PM | | | | | PST | | + + + + + | Body Mass Index | 45.49 | 01/29/2010 12:06 PM | | | | | PST | | + + + + + documented in this encounter Progress Notes Mary Hallman MD - 01/29/2010 3:25 PM PST Marques Gallego is a 24 y.o. female was seen today for a neurosurgical consultation wi th regard to right sided facial pain. She has been diagnosed with MS for the past year when she presented with right arm numbness followed by right sided body numbness. 5 months ago tarun don noticed deep and constant pain in her right ear as well as her face affecting her jaw and teeth. She latter started to develop sharp electric pain in the V2 area that is intermittent and provoked with talking, touch and cold. She has an old history of bells palsy on the rig ht side that has resolved. She has taken the self assessment questionnaire and shows secondary trigeminal neuralgia du e to MS. Allergies Allergen Reactions Penicillins Current outpatient prescriptions Medication Sig INTERFERON BETA-1A/ALBUMIN (AVONEX IM) Inject 0.5 mg into the muscle (IM) every seven d ays. Past Medical History Diagnosis Date Kidney stone Facial pain Past Surgical History Procedure Date Stent placement Removal of Kidney stones Eswl Kidney Stones History Substance Use Topics Tobacco Use: Yes -- 0.5 packs/day Alcohol Use: No No family history on file. Review of Systems: A complete review of systems was performed, including the following: Constitutional Eyes Ears, nose mouth, throat Cardiovascular Respiratory Gastrointestinal Genitourinary Musculoskeletal Skin Neurologic Psychiatric Hematologic or Lymphatic Allergic or immunologic The results were normal with the following exception: MS Physical Exam: Ht 1.524 m (5') | Wt 105.643 kg (232 lb 14.4 oz) | BMI 45.49 kg/(m^2) COR/Lungs: normal Skin: normal Mental status: alert and oriented times three and judgement and insight intact . Cranial nerves: normal Strength: normal Sensory: normal Cerebellar function: normal Gait: normal Deep tendon reflexes: normal Pathologic findings: normal Imaging studies: None Diagnostic studies: none Impression: Mrs. Marques Gallego has trigeminal neuralgia due to her MS. The main problem with her condition is that she has both a constant aching pain and a sharp stabbing component. In no rmal trigeminal neuralgia the sharp pain is better responding to surgery, weather MVD, RFL o r radiosurgery. This also hold true in her case but with MS the outcome is difficult to pred ict and given she has not responded well to medication the best options is surgery and RFL i s a better option than MVD in MS cases. This will help with her sharp pain and hopefully, at least to some extent with her aching constant pain. Recommendations: Right RFL of the trigeminal nerve. documented in this encounter Plan of Treatment Not on filedocumented as of this encounter Procedures + +--------+ + + + | Procedure Name | Priori | Date/Time | Associated Diagnosis | Comments | | | ty | | | | + +--------+ + + + | RADIOLOGY | | 01/29/2010 | | Results for this | | | | 12:45 PM | | procedure are in the | | | | PST | | results section. | + +--------+ + + + documented in this encounter Results RADIOLOGY (01/29/2010 12:45 PM PST) + + + | Narrative | Performed At | + + + | | | + + + + + | Procedure Note | + + | Rachel, Faculty - 01/29/2010 12:45 PM PST | | | + + documented in this encounter Visit Diagnoses + + | Diagnosis | + + | Trigeminal neuralgia | + + | MS (multiple sclerosis) (HCC) Multiple sclerosis | + + documented in this encounter"
--- OUTSIDE RECORDS SUMMARY | ~2018-11-27 | XMS | Encounter Summary ---
Demographics + + + | Address | [address] | | | [place] [address] | + + + | Home Phone | | + + + | Preferred Language | Unknown | + + + | Marital Status | Single | + + + | Roman Catholic Affiliation | NON | + + + | Race | White | + + + | Ethnic Group | Not or | + + + Author + + + | Author | [facility] | + + + | Organization | [facility] | + + + | Address | Unknown | + + + | Phone | Unavailable | + + + Support + + +---------+ + | Name | Relationship | Address | Phone | + + +---------+ + | Nancy Nesbitt | ECON | Unknown | | + + +---------+ + Care Team Providers + +------+ + | Care Purchasing Intern Name | Role | Phone | + +------+ + | Renard Easley DO | PCP | | + +------+ + Reason for Referral Consultation (Routine) +--------+--------+ + + + + | Status | Reason | Specialty | Diagnoses / | Referred By | Referred To | | | | | Procedures | Contact | Contact | +--------+--------+ + + + + | Closed | | Neurology | Diagnoses | Yulia, | Desire | | | | | MS | Nimo Kim, | Residents | | | | | (multiple | PA-C [address] | | | | | sclerosis) | [address] | [address] | | | | | ([facility]) | [address] | Mailcode: | | | | | Trigeminal | [address] | [facility] | | | | | neuralgia | [place], [place] | for Health | | | | | Procedures | [address] | and Healing, | | | | | CONSULT TO | | [address], | | | | | NEUROLOGY | | 8th Floor | | | | | | | [place], [place] | | | | | | | [address] | | | | | | | Phone: | | | | | | | [phone] | | | | | | | Fax: | | | | | | | [phone] | +--------+--------+ + + + + Encounter Details +--------+---------+ + + + | Date | Type | Department | Care Team | Description | +--------+---------+ + + + | 05/07/ | Office | Neurosurgery at | Nimo Bender | MS (multiple | | 2010 | Visit | [facility] [address] | [place]BRIE | sclerosis) ([facility]); | | | | Ave Mailcode: [facility] | | Trigeminal neuralgia | | | | [facility] | | | | | | and Healing, | | | | | | Building | | | | | | Floor [place], [place] | | | | | | [address] | | | | | | [phone] | | | +--------+---------+ + + + [...] + + + | Blood Pressure | 114/93 | 05/07/2010 12:57 PM | | | | | PDT | | + + + + + | Pulse | 93 | 05/07/2010 12:57 PM | | | | | PDT | | + + + + + | Temperature | - | - | | + + + + + | Respiratory Rate | 16 | 05/07/2010 12:57 PM | | | | | PDT | | + + + + + | Oxygen Saturation | - | - | | + + + + + | Inhaled Oxygen | - | - | | | Concentration | | | | + + + + + | Weight | 105.7 kg (233 lb) | 05/07/2010 12:57 PM | | | | | PDT | | + + + + + | Height | - | - | | + + + + + | Body Mass Index | 45.5 | 03/27/2010 6:19 AM | | | | | PST | | + + + + + documented in this encounter Progress Notes Nimo Bender PA-C - 05/07/2010 1:28 PM PDTFormatting of this note might be differen t from the original. NEUROSURGERY Subjective: Marques is a 25 year old female with a history of MS who presents for her postope rative visit. She is POD#6-weeks status post right RFL for [place]. She reports improvement of th e constant, aching component of her facial pain. She is able to sit in the wind without trig gering pain. She does however endorse continuation of the "sharp, stabbing" component of her pain. She says it is intermittent but not bothersome enough at this point for redo RFL. She was previously on high-dose Tegretol and Neurontin for facial pain but states that it did n ot help her facial pain. She has not taken Tegretol or Neurontin, she has also not been taki ng any oral narcotics. She does not have an existing Neurologist at this time to follow her MS. Denies fevers, chills, sweats, new pains, left side facial pains. Exam: BP 114/93 | Pulse 93 | RR 16 | Wt 105.688 kg (233 lb) General: Well-developed, well-nourished female in NAD Neuro: GERA, EOM intact, face symmetric, Left V1-3 sensate, Right V1 and V3 sensate to PP. Mild hypesthesia to PP on right V2 distribution Motor: Moving all extremities well with full strength, no drift Incision: none Assessment/Plan: Marques Gallego is a 25 y.o. female status post right RFL for [place] on . She has improvement of her constant, aching component of her pain but continues to h ave mild sharp [place] pains. She is not interested in redo RFL at this time. She is encouraged t o try Tegretol again, to start at 200mg BID and titrate up as tolerated. This may have more benefit after RFL. - Referral to [facility] clinic - Tegretol 200mg BID and titrate up for facial pain - Return to clinic if would like to proceed with additional RFL - Call with questions/concerns Nimo Bender PA-C Current outpatient prescriptions Medication Sig ERGOCALCIFEROL, VITAMIN D2, (VITAMIN D ORAL) Take 4,000 mg by mouth once daily. INTERFERON BETA-1A/ALBUMIN (AVONEX IM) Inject 0.5 mg into the muscle (IM) every seven d ays. Levonorgestrel-Ethinyl Estrad (LYBREL) 90-20 mcg Oral Tablet Take by mouth once daily. Allergies Allergen Reactions Penicillins unknown documented in t his encounter Plan of Treatment Not on filedocumented as of this encounter Visit Diagnoses + + | Diagnosis | + + | MS (multiple sclerosis) (HCC) Multiple sclerosis | + + | Trigeminal neuralgia | + + documented in this encounter
--- OUTSIDE RECORDS SUMMARY | ~2018-11-27 | XMS | Encounter Summary ---
Demographics + + + | Address | [address] | | | [place] [address] | + + + | Home Phone | | + + + | Preferred Language | Unknown | + + + | Marital Status | Single | + + + | Pentecostal Affiliation | NON | + + + [...] Team Providers + +------+ + | Care Fruit Packer Face And Fill Name | Role | Phone | + +------+ + | Renard Easley DO | PCP | | + +------+ + Reason for Visit AUTH/CERT +--------+--------+ + + + + | Status | Reason | Specialty | Diagnoses / | Referred By | Referred To | | | | | Procedures | Contact | Contact | +--------+--------+ + + + + | Closed | | | | | [facility] | | | | | | | Short Stay | | | | | | | [address] | | | | | | | [address] | | | | | | | [address] | | | | | | | [facility] | | | | | | | [place] | | | | | | | [facility] | | | | | | | ([facility]) | | | | | | | [place], | | | | | | | [place] [address] | | | | | | | Phone: | | | | | | | [phone] | | | | | | | Fax: | | | | | | | [phone] | +--------+--------+ + + + + Encounter Details +--------+ + + + + | Date | Type | Department | Care Team | Description | +--------+ + + + + | 03/27/ | Hospital | [facility] [address] | Nehal Lloyd MD | | | 2010 | Encounter | [address] | [address] | | | | | 4 [facility] | [place], [place] | | | | | [place] | [address] | | | | | ([facility]) | [phone] | | | | | [place], [place] | | | | | | [address] | | | | | | [phone] | | | +--------+ + + + [...] + + + | Blood Pressure | 124/93 | 03/27/2010 9:15 AM | | | | | PST | | + + + + + | Pulse | 99 | 03/27/2010 9:15 AM | | | | | PST | | + + + + + | Temperature | 36.7 C (98.1 F) | 03/27/2010 8:30 AM | | | | | PST | | + + + + + | Respiratory Rate | 16 | 03/27/2010 9:15 AM | | | | | PST | | + + + + + | Oxygen Saturation | 99% | 03/27/2010 9:15 AM | | | | | PST | | + + + + + | Inhaled Oxygen | - | - | | | Concentration | | | | + + + + + | Weight | 105.2 kg (232 lb) | 03/27/2010 6:19 AM | | | | | PST | | + + + + + | Height | 152.4 cm (5') | 03/27/2010 6:19 AM | | | | | PST | | + + + + + | Body Mass Index | 45.31 | 03/27/2010 6:19 AM | | | | | PST | | + + + + + documented in this encounter Discharge Summaries Mary Todd MD - 03/27/2010 7:23 AM PST NEUROSURGICAL DISCHARGE AND INTERDISCIPLINARY INSTRUCTIONS Admission Date: 03/27/2010 Discharge Date: 03/27/2010 Service: Neurological Surgery Principal Final Diagnosis: Trigeminal nerualgia Additional Diagnoses: MS Principal Procedure: Right RFL Reason for Admission, Significant Findings, Treatment, and Complications Right facial pain not responding or controlled by medication. Brief Hospital Course: The patient was admitted to the on the day of the surgery. She was identified by name and date of and was taken to the OR. general anesthesia was administered and RFl was done in the supine position. She tolerated the procedure well and recovered from anesthesia at th e completion of the procedure. She shifted to the recovery room thereafter. Discharge Medications: Current Medication List Name Sig VITAMIN D ORAL Take 4,000 mg by mouth once daily. HYDROCODONE-ACETAMINOPHEN 10 MG-325 MG TAB Take 1 Tab by mouth every four hours as needed. Not to exceed 12 tablets per any 24 hour period. (Not to exceed 4000 mg of acetaminophen fro m all products per 24 hour period.) AVONEX IM Inject 0.5 mg into the muscle (IM) every seven days. LEVONORGESTREL-ETHINYL ESTRADIOL 90 MCG-20 MCG TAB Take by mouth once daily. Diet: Regular Activity: Advance activity as tolerated. Special Instructions: (Treatment, Equipment, Supplies, Dressings, LAB follow-up) : Please keep dressing on wound(s) for 1 day after surgery. Call: Please call , or and ask for the Neurosurgery resident o n call if you have any of the following: Difficulty breathing or unusual shortness of breath Excessive bleeding, drainage at the operative site Fevers, chills, increased pain that is not relieved by pain medications Persistent nausea or vomiting Other SPECIFIC concerns, such as: Pain, numbness, loss of bowel or bladder function or we akness of the lower extremities PCP:Renard Easley, DO When: Please follow-up with your PCP as soon as possible to review new medications and recent interventions, usually within 2 weeks. . Neurosurgery: Please attend your follow-up appointment with Dr. Nehal Lloyd MD at the [facility] on the 8th floor of the [facility]: Please c all to make or confirm your appointment. Usually within 2 weeks Condition On Discharge: Stable Vital Signs at discharge as appropriate: BP: 131/92 mmHg (03/27/10618) Pulse: 106 (03/27/10618) Resp: 16 (03/27/10618) We ight: 105.235 kg (232 lb) (03/27/10618) Discharge Patient To: Home Discharging Provider: MARY TODD MD Date Completed: 03/27/2010 Discharging Attending: Nehal Lloyd MD Electronically signed by Mary Todd MD at 03/27 8:31 AM PSTdocumented in this encounter Discharge Instructions Instructions Claire Cade RN - 03/27/2010Formatting of this note might be different fro m the original. NEUROSURGICAL DISCHARGE AND INTERDISCIPLINARY INSTRUCTIONS Admission Date: 03/27/2010 Discharge Date: 03/27/2010 Service: Neurological Surgery Principal Final Diagnosis: Trigeminal nerualgia Additional Diagnoses: MS Principal Procedure: Right RFL Reason for Admission, Significant Findings, Treatment, and Complications Right facial pain not responding or controlled by medication. Brief Hospital Course: The patient was admitted to the on the day of the surgery. She was identified by name and date of and was taken to the OR. general anesthesia was administered and RFl was done in the supine position. She tolerated the procedure well and recovered from anesthesia at th e completion of the procedure. She shifted to the recovery room thereafter. Discharge Medications: Current Medication List Name Sig VITAMIN D ORAL Take 4,000 mg by mouth once daily. HYDROCODONE-ACETAMINOPHEN 10 MG-325 MG TAB Take 1 Tab by mouth every four hours as needed. Not to exceed 12 tablets per any 24 hour period. (Not to exceed 4000 mg of acetaminophen fro m all products per 24 hour period.) AVONEX IM Inject 0.5 mg into the muscle (IM) every seven days. LEVONORGESTREL-ETHINYL ESTRADIOL 90 MCG-20 MCG TAB Take by mouth once daily. Diet: Regular Activity: Advance activity as tolerated. Special Instructions: (Treatment, Equipment, Supplies, Dressings, LAB follow-up) : Please keep dressing on wound(s) for 1 day after surgery. Call: Please call , or and ask for the Neurosurgery resident o n call if you have any of the following: Difficulty breathing or unusual shortness of breath Excessive bleeding, drainage at the operative site Fevers, chills, increased pain that is not relieved by pain medications Persistent nausea or vomiting Other SPECIFIC concerns, such as: Pain, numbness, loss of bowel or bladder function or we akness of the lower extremities PCP:Renard Easley, DO When: Please follow-up with your PCP as soon as possible to review new medications and recent interventions, usually within 2 weeks. . Neurosurgery: Please attend your follow-up [facility]: Please c all to make or confirm your appointment. Usually within 2 weeks Condition On Discharge: Stable Vital Signs at discharge as appropriate: BP: 131/92 mmHg (03/27/10618) Pulse: 106 (03/27/10618) Resp: 16 (03/27/10618) We ight: 105.235 kg (232 lb) (03/27/10618) Discharge Patient To: Home Discharging Provider: MARY TODD MD Date Completed: 03/27/2010 Discharging Attending: Nehal Lloyd MD Remember You are under the influence of medications. DO NOT drive, drink alcohol, sign legal documen ts or make major decisions for at least 24 hours and while taking narcotics. Diet and Medications You may return to your normal diet and take your normal medications unless otherwise instru cted by your physician. How to Reach Your Doctor Tuesday through Tuesday from 8:00 to 4:[address] Lloyd at After hours, weekends and holidays, call the Hospital Maintenance [facility] at [phone] and asked to have your doctor paged documented in this encounter Medications at Time of Discharge + + + +---------+ + + | Medication | Sig | Dispensed | Refills | Start | End Date | | | | | | Date | | + + + +---------+ + + | ERGOCALCIFEROL, | Take 4,000 mg by | | 0 | 03/26/19 | | | VITAMIN D2, (VITAMIN | mouth once daily. | | | 11 | | | D ORAL) | | | | | | + + + +---------+ + + | INTERFERON | Inject 0.5 mg into | | 0 | 01/30/20 | | | BETA-1A/ALBUMIN | the muscle (IM) | | | 10 | | | (AVONEX IM) | every seven days. | | | | | + + + +---------+ + + | | Take by mouth once | | 0 | 03/26/19 | | | Levonorgestrel-Ethin | daily. | | | 11 | | | yl Estrad (LYBREL) | | | | | | | 90-20 mcg Oral | | | | | | | Tablet | | | | | | + + + +---------+ + + documented as of this encounter Plan of Treatment + +---------+--------+ + + | Name | Type | Priori | Associated Diagnoses | Date/Time | | | | ty | | | + +---------+--------+ + + | OR FLUOROSCOPY > 1 | Imaging | Routin | | 03/27/2010 8:38 AM | | HOUR | | e | | PST | + +---------+--------+ + + + +---------+--------+ + + | Name | Type | Priori | Associated Diagnoses | Order Schedule | | | | ty | | | + +---------+--------+ + + | OR FLUOROSCOPY > 1 | Imaging | Routin | | One Time for 1 | | HOUR | | e | | Occurrences starting | | | | | | 03/27/2010 until | | | | | | 03/27/2010 | + +---------+--------+ + + documented as of this encounter Procedures + +--------+ + + + | Procedure Name | Priori | Date/Time | Associated Diagnosis | Comments | | | ty | | | | + +--------+ + + + | PROCEDURE NOTE | Routin | 2015 | | Results for this | | | e | 7:30 AM | | procedure are in the | | | | PST | | results section. | + +--------+ + + + | ANESTHESIA/SEDATION | | 03/27/2010 | | Results for this | | | | 12:00 AM | | procedure are in the | | | | PST | | results section. | + +--------+ + + + | ANESTHESIA/SEDATION | | 03/27/2010 | | Results for this | | | | 12:00 AM | | procedure are in the | | | | PST | | results section. | + +--------+ + + + | TEACHING PHYSICIAN | | 03/27/2010 | | Results for this | | | | 12:00 AM | | procedure are in the | | | | PST | | results section. | + +--------+ + + + | OPERATION RECORD | | 03/27/2010 | | Results for this | | | | 12:00 AM | | procedure are in the | | | | PST | | results section. | + +--------+ + + + documented in this encounter Results PROCEDURE NOTE (2015 7:30 AM PST)OPERATION RECORD (03/27/2010 12:00 AM PST) + + + | Narrative | Performed At | + + + | [id number] | | | [id number] | | | [id number] [facility] [address] [id number] | | | Date: 03/27/2010 Attending Surgeon: | | | Nehal Lloyd M.D. Co-Attending: Dr. Hernandez | | | [employer]. Board Of Directors(s): Mary Todd, | | | Julisa Preoperative Diagnosis(es): 1. Right trigeminal | | | neuralgia. 2. Multiple sclerosis. Postoperative | | | Diagnosis(es): 1. Right trigeminal neuralgia. 2. Multiple | | | sclerosis. Procedures Performed: 1. Right radiofrequency | | | lesioning. 2. Intraoperative fluoroscopy. Indications: | | | Ms. Eastman is a 25-year-old female patient with secondary | | | trigeminal neuralgia with multiple sclerosis uncontrolled by | | | medications. She comes in for radiofrequency lesioning. Her | | | pain is mainly at the V2, and she has achy pain at the V3 lesion. | | | She was notified that we would only be addressing the V2 sharp | | | stabbing pain. Operative Findings: Single lesion for 90 | | | second, 80 degrees performed which lead to hypoesthesia to pinprick | | | in V2 region. Procedure: Ms. Gallego came in the morning, | | | identified, site marked, and instructed on the course of the | | | procedure. She was taken to the OR, where she was placed supine, | | | given intravenous propofol for deep sedation. After which, | | | fluoroscopy was introduced and obtained submentovertical views | | | extending the head. We identified the foramen spinosum and foramen | | | ovale bilaterally. Once she was adequately asleep, we prepped the | | | right side of her face and draped it. Surgical pause was done | | | confirming identity and procedure. We then performed a small stab | | | 3 cm lateral and 1 cm below the oral commissure. Once the stab | | | was created with fluoroscopy guidance, we introduced RFL needle, | | | following a plane that would bisect a line from the midclavicular | | | line and 1 inch in front of the tragus to the base of the skull | | | directed towards the foramen ovale. Once we reached the foramen | | | ovale and entered the center of it, we shifted our fluoroscopy to | | | obtain lateral views and decide the depth of the needle. We | | | advanced the needle to the required depth on the sella and then | | | removed the needle and through the trocar introduced the curved | | | electrode. We awakened the patient up, and stimulation obtained | | | good responsive at the V2 region. We then put her to sleep and | | | created a single 80 degree lesion for 90 seconds and we obtained | | | flushing of the V2 area. Once we did the lesioning effect, the | | | patient was awakened and examined for pinprick sensation. She could | | | feel the sensation on the V2 area, but could not perceive it as | | | sharp rather as a blunt pressure thus we noted that we had | | | received quite amount of anesthesia. Once this was done, we | | | concluded our procedure. We removed the needle, cleansed The skin | | | and put a Band-Aid at the site of stab. The patient was then | | | awakened and transferred to the recovery area for discharge. | | | Procedure lasted around 1 hour. Estimated Blood Loss: Less | | | than 10 cc. IV Fluids: See anesthesia notes. | | | Complications: None. Specimens: None. Counts complete | | | at the end of the procedure. Mary Todd MD | | | Nehal Lloyd M.D. [facility] / [id number] / [id number] / [id number] / | | | | | + + + + ---+ | Procedure Note | + ---+ | Mary Todd MD - 03/29/2010 5:45 AM [facility] [id number] | | [id number] [facility] | | [id number] Date: 03/27/2010 Attending Surgeon: | | Nehal Lloyd M.D. Co-Attending: Dr. Mary Todd. Board Of Directors(s): | | Mary Todd M.D. Preoperative Diagnosis(es):1. Right trigeminal neuralgia.2. | | Multiple sclerosis. Postoperative Diagnosis(es):1. Right trigeminal neuralgia.2. | | Multiple sclerosis. Procedures Performed:1. Right radiofrequency lesioning.2. | | Intraoperative fluoroscopy. Indications:Ms. Eastman is a 25-year-old female patient | | with secondary trigeminalneuralgia with multiple sclerosis uncontrolled by medications. | | She comesin for radiofrequency lesioning. Her pain is mainly at the V2, and she | | hasachy pain at the V3 lesion. She was notified that we would only beaddressing the V2 | | sharp stabbing pain. Operative Findings:Single lesion for 90 second, 80 degrees | | performed which lead tohypoesthesia to pinprick in V2 region. Procedure:Ms. Gallego | | came in the morning, identified, site marked, and instructed onthe course of the | | procedure. She was taken to the OR, where she was placedsupine, given intravenous | | propofol for deep sedation. After which,fluoroscopy was introduced and obtained | | submentovertical views extendingthe head. We identified the foramen spinosum and | | foramen ovalebilaterally. Once she was adequately asleep, we prepped the right side | | ofher face and draped it. Surgical pause was done confirming identity andprocedure. We | | then performed a small stab 3 cm lateral and 1 cm below theoral commissure. Once the | | stab was created with fluoroscopy guidance, weintroduced RFL needle, following a plane | | that would bisect a line from themidclavicular line and 1 inch in front of the tragus to | | the base of theskull directed towards the foramen ovale. Once we reached the | | foramenovale and entered the center of it, we shifted our fluoroscopy to obtainlateral | | views and decide the depth of the needle. We advanced the needle to the required depth | | on the sella and then removed the needle and through thetrocar introduced the curved | | electrode. We awakened the patient up, andstimulation obtained good responsive at the | | V2 region. We then put her tosleep and created a single 80 degree lesion for 90 seconds | | and we obtainedflushing of the V2 area. Once we did the lesioning effect, the patient | | wasawakened and examined for pinprick sensation. She could feel thesensation on the V2 | | area, but could not perceive it as sharp rather as a blunt pressure thuswe noted that | | we had received quite amount of anesthesia. Once this wasdone, we concluded our | | procedure. We removed the needle, cleansedThe skin and put a Band-Aid at the site of | | stab. The patient wasthen awakened and transferred to the recovery area for discharge. | | Procedure lasted around 1 hour. Estimated Blood Loss:Less than 10 cc. IV Fluids:See | | anesthesia notes. Complications:None. Specimens:None. Counts complete at the end of | | the procedure. MD Nehal Morrell M.D. [facility] / [id number] / [id number] / | | [id number] / T: 03/28/2010 | | | | | |Procedure: | |Ms. Gallego came in the morning, identified, site marked, and instructed on | |the course of the procedure. She was taken to the OR, where she was placed | |supine, given intravenous propofol for deep sedation. After which, | |fluoroscopy was introduced and obtained submentovertical views extending | |the head. We identified the foramen spinosum and foramen ovale | |bilaterally. Once she was adequately asleep, we prepped the right side of | |her face and draped it. Surgical pause was done confirming identity and | |procedure. We then performed a small stab 3 cm lateral and 1 cm below the | |oral commissure. Once the stab was created with fluoroscopy guidance, we | |introduced RFL needle, following a plane that would bisect a line from the | |midclavicular line and 1 inch in front of the tragus to the base of the | |skull directed towards the foramen ovale. Once we reached the foramen | |ovale and entered the center of it, we shifted our fluoroscopy to obtain | |lateral views and decide the depth of the needle. We advanced the needle to the | |required depth on the sella and then removed the needle and through the | |trocar introduced the curved electrode. We awakened the patient up, and | |stimulation obtained good responsive at the V2 region. We then put her to | |sleep and created a single 80 degree lesion for 90 seconds and we obtained | |flushing of the V2 area. Once we did the lesioning effect, the patient was | |awakened and examined for pinprick sensation. She could feel the | |sensation on the V2 area, but could not perceive it as sharp rather as a blunt pressure th us | |we noted that we had received quite amount of anesthesia. Once this was | |done, we concluded our procedure. We removed the needle, cleansed | |The skin and put a Band-Aid at the site of stab. The patient was | |then awakened and transferred to the recovery area for discharge. | | | | | |Procedure lasted around 1 hour. | | | | | |Estimated Blood Loss: | |Less than 10 cc. | | | | | |IV Fluids: | |See anesthesia notes. | | | | | |Complications: | |None. | | | | | |Specimens: | |None. | | | | | |Counts complete at the end of the procedure. | | | | | | | | | |Mary Todd MD | | | | | | | | | |Nehal Lloyd M.D. | | | | | |DAB / HS | |[id number] / [id number] / [id number] / | | | | | | | | | | | | | | | | | | | | | + ---+ TEACHING PHYSICIAN (03/27/2010 12:00 AM PST) + + + | Narrative | Performed At | + + + | [id number] | | | [id number] | | | [id number] [facility] [address] [id number] | | | Date: 03/27/2010 Attending Surgeon: | | | Nehal Lloyd M.D. Board Of Directors(s): | | | Mary Todd MD Preoperative | | | Diagnosis(es): 1. Multiple sclerosis. 2. Symptomatic right | | | trigeminal neuralgia. Postoperative Diagnosis(es): 1. | | | Multiple sclerosis. 2. Symptomatic right trigeminal | | | neuralgia Procedures Performed: 1. Right trigeminal | | | radiofrequency gangliolysis. 2. Fluoroscopy x1 hour. Pursuant | | | to Federal Medicare billing regulations, I certify that I was | | | present for and participated in the critical portions of the | | | procedure including right trigeminal radiofrequency lesion, | | | fluoroscopy x1 hour and closure. Nehal Lloyd M.D. | | | KJB / HS [id number] / [id number] / [id number] / | | | | | + + + + + | Procedure Note | + + | Nehal Lloyd MD - 03/28/2010 9:15 AM PST [id number] | | [id number] [facility] | | N [id number] Date: 03/27/2010 Attending Surgeon: | | Nehal Lloyd M.D. Board Of Directors(s): Mary Todd MD | | Preoperative Diagnosis(es):1. Multiple sclerosis.2. Symptomatic right trigeminal | | neuralgia. Postoperative Diagnosis(es):1. Multiple sclerosis.2. Symptomatic | | right trigeminal neuralgia Procedures Performed:1. Right trigeminal radiofrequency | | gangliolysis.2. Fluoroscopy x1 hour.Pursuant to Federal Medicare billing | | regulations, I certify that I waspresent for and participated in the critical portions | | of the procedureincluding right trigeminal radiofrequency lesion, fluoroscopy x1 hour | | andclosure. Nehal Lloyd M.D.[facility] / [id number] / [id number] / [id number] / T: | | 03/27/2010 | | | |Preoperative Diagnosis(es): | |1. Multiple sclerosis. | |2. Symptomatic right trigeminal neuralgia. | | | | | | | | | |Postoperative Diagnosis(es): | |1. Multiple sclerosis. | |2. Symptomatic right trigeminal neuralgia | | | | | | | | | |Procedures Performed: | |1. Right trigeminal radiofrequency gangliolysis. | |2. Fluoroscopy x1 hour. | |Pursuant to Federal Medicare billing regulations, I certify that I was | |present for and participated in the critical portions of the procedure | |including right trigeminal radiofrequency lesion, fluoroscopy x1 hour and | |closure. | | | | | | | | | |Nehal Lloyd M.D. | |KJB / | |[id number] / [id number] / [id number] / | | | | | | | | | | | | | | | | | | | | | + + ANESTHESIA/SEDATION (03/27/2010 12:00 AM PST) + + + | Narrative | Performed At | + + + | | | + + + + + | Procedure Note | + + | Wang Ramos - 03/27/2010 10:13 AM PST | | | + + ANESTHESIA/SEDATION (03/27/2010 12:00 AM PST) + + + | Narrative | Performed At | + + + | | | + + + + + | Procedure Note | + + | Other, Faculty - 03/27/2010 8:43 AM PST | | | + + documented in this encounter Visit Diagnoses Not on filedocumented in this encounter Administered Medications + +--------+---------+------+------+------+ | Medication Order | MAR | Action | Dose | Rate | Site | | | Action | Date | | | | + +--------+---------+------+------+------+ + +---+ | oxyCODONE (immediate release) | | | (aka ROXICODONE) tablet 1 dose, | | | Starting Tue03/27/10 at 0913, | | | Until Tue03/27/10 at 0920 | | + +---+ | | | + +---+ + +-------+ +------+---+---+ | oxyCODONE immediate release | Given | 03/27/19 | 5 mg | | | | (aka ROXICODONE) tablet 5-10 mg | | 11 9:20 | | | | | 5-10 mg, oral, EVERY 4 HOURS | | AM PST | | | | | NEEDED, Starting 03/27/10 at | | | | | | | 0833, Until 03/27/10 at 1552, | | | | | | | severe pain | | | | | | + +-------+ +------+---+---+ +---+---+ | | | +---+---+ documented in this encounter"
--- OUTSIDE RECORDS SUMMARY | ~2018-11-27 | XMS | Encounter Summary ---
Demographics + + + | Address | [address] | | | [place] [address] | + + + | Home Phone | | + + + | Preferred Language | Unknown | + + + | Marital Status | Single | + + + | Faith Affiliation | Unknown | + + + | Race | Unknown | + + + | Ethnic Group | Unknown | + + + Author + + + | Author | [facility] | | | and [place] | + + + | Organization | [facility] | | | [...] Team Providers + +------+ + | Care Implementation Director Name | Role | Phone | + [...] numbness | | 2019 | Visit | [facility] | 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 MS (multiple sclerosis) ([facility]) - gabapentin (NEURONTIN) 600 MG tablet; [...] is being managed by a neurologist in [place], [place]. She stated th at she has [...] made to ensure accuracy. However, inadvertent computerized tuft machine operator errors may be pre sent documented in [...] D | | | | | | [place] [address] | | | | | | [phone] | | | | | | | | +--------+---------+ + + + documented as of this encounter Visit Diagnoses + + | Diagnosis | + + | Right leg numbness - Primary Disturbance of skin sensation | + + | MS (multiple sclerosis) (HCC) Multiple sclerosis | + + documented in this encounter"
--- OUTSIDE RECORDS SUMMARY | ~2018-11-27 | XMS | Clinical Summary ---
Demographics + + + | Address | [address] | | | [place] [address] | + + + | Home Phone | | + + + | Preferred Language | Unknown | + + + | Marital Status | Single | + + + | Episcopal Affiliation | NON | + + + | Race | White | + + + | Ethnic Group | Not or | + + + Author + + + | Author | [facility] | + + + | Organization | [facility] | + + + | Address | Unknown | + + + | Phone | Unavailable | + + + Support + + +---------+ + | Name | Relationship | Address | Phone | + + +---------+ + | Nancy Nesbitt | ECON | Unknown | | + + +---------+ + Care Team Providers + +------+ + | Care Silk Folder Name | Role | Phone | + +------+ + | Renard Easley DO | PCP | | + +------+ + Source Comments HERMAN is fully live on both [facility] Ambulatory and [facility] InPatient.[facility] Allergies + + + + + + | Active Allergy | Reactions | Severity | Noted | Comments | | | | | Date | | + + + + + + | Penicillins | | | 01/30/20 | unknown | | | | | 10 | | + + + + + + Medications + + + +---------+------+------+-------+ | Medication | Sig | Dispensed | Refills | Star | End | Statu | | | | | | t | Date | s | | | | | | Date | | | + + + +---------+------+------+-------+ | INTERFERON | Inject 0.5 mg into | | 0 | 12/1 | | Activ | | BETA-1A/ALBUMIN | the muscle (IM) | | | 6/20 | | e | | (AVONEX IM) | every seven days. | | | 10 | | | + + + +---------+------+------+-------+ | ERGOCALCIFEROL, | Take 4,000 mg by | | 0 | 02/1 | | Activ | | VITAMIN D2, (VITAMIN | mouth once daily. | | | 0/20 | | e | | D ORAL) | | | | 11 | | | + + + +---------+------+------+-------+ | | Take by mouth once | | 0 | 02/1 | | Activ | | Levonorgestrel-Ethin | daily. | | | 0/20 | | e | | yl Estrad (LYBREL) | | | | 11 | | | | 90-20 mcg Oral | | | | | | | | Tablet | | | | | | | + + + +---------+------+------+-------+ Active Problems + + + | Problem | Noted Date | + + + | MS (multiple sclerosis) | 01/29/2010 | + + + | Trigeminal neuralgia | 01/29/2010 | + + + Family History + +------+--------+ + | Relation | Name | Status | Comments | + +------+--------+ + | Brother | | Alive | | + +------+--------+ + | Daughter | | Alive | | + +------+--------+ + | Father | [...] recent travel history available. | + + Last Filed Vital Signs + [...] | | + + + + + Plan of Treatment + + + + + | Health Maintenance | Due Date | Last Done | Comments | + + + + + | Pneumococcal | | | | | vaccination (1 of 1 | 1 | | | | - PPSV23) | | | | + + + + + | Influenza (Flu) | | | | | vaccination (#1) | 9 | | | + + + + + Results Not on filefrom Last 3 Months Advance Directives + + + + + | Code Status | Date | Date | Comments | | | Activated | Inactivated | | + + + + + | Full Code | 03/27/2010 | 03/27/2010 | | | | 7:21 AM | 4:22 PM | | + + + + +"
--- OUTSIDE RECORDS SUMMARY | ~2018-11-27 | XMS | Encounter Summary ---
Demographics + + + | Address | [address] | | | [place] [address] | + + + | Home Phone | | + + + | Preferred Language | Unknown | + + + | Marital Status | Single | + + + | Mormon Affiliation | Unknown | + + + | Race | Unknown | + + + | Ethnic Group | Unknown | + + + Author + + + | Author | [facility] | | | and [place] | + + + | Organization | [facility] | | | [...] Providers + +------+ + | Care Senior Planning Manager Name | Role | Phone | + +------+ + | Renard Easley DO | PCP | | + +------+ + Encounter Details +--------+ + + + + | Date | Type | Department | Care Team | Description | +--------+ + + + + | 09/29/ | Orders Only | [facility] | Jame Saini, | Multiple sclerosis | | 2019 | | NEUROLOGY [address] | ([facility]); Lumbago with | | | | [address] | [address] | sciatica | | | | [place], [place] | [place] [address] | | | | | [address] | [phone] | | | | | [phone] | | | +--------+ + + + [...] | | | | | [place] [address] | | | | | | [phone] | | | | | | | [...]
--- OUTSIDE RECORDS SUMMARY | ~2018-11-27 | XMS | Encounter Summary ---
Demographics + + + | Address | [address] | | | [place] [address] | + + + | Home Phone | | + + + | Preferred Language | Unknown | + + + | Marital Status | Single | + + + | Quaker Affiliation | NON | + + + | Race | White | + + + | Ethnic Group | Not or | + + + Author + + + | Author | [facility] | + + + | Organization | [facility] | + + + | Address | Unknown | + + + | Phone | Unavailable | + + + Support + + +---------+ + | Name | Relationship | Address | Phone | + + +---------+ + | Nancy Nesbitt | ECON | Unknown | | + + +---------+ + Care Team Providers + +------+ + | Care Materials Development Engineer Name | Role | Phone | + [...] [address] | | | | | ([facility]) | [address] | Mailcode: | | | | | Trigeminal | [address] | [facility] | | | | | neuralgia | [place], [place] | for Health | | | | | Procedures | [address] | and Healing, | | | | | CONSULT TO | | Building 1, | | | | | NEUROLOGY | | 8th Floor | | | | | | | [place], [place] | | | | | | | [address] | | | | | | | Phone: | | | | | | | [phone] | | | | | | | Fax: | | | | | | | [phone] | +--------+--------+ + + + + Encounter Details +--------+---------+ + + + | Date | Type | Department | Care Team | Description | +--------+---------+ + + + | 05/07/ | Office | Neurosurgery at | Nimo Bender | MS (multiple | | 2010 | Visit | [facility] [address] | YBRIE | sclerosis) ([facility]); | | | | Ave Mailcode: CH8N | | Trigeminal neuralgia | | | | [facility] | | | | | | and Healing, | | | | | | Building | | | | | | Floor [place], [place] | | | | | | [address] | | | | | | [phone] | | | +--------+---------+ + + + [...] more benefit after RFL. - Referral to [facility] MS clinic - Tegretol [...]
--- OUTSIDE RECORDS SUMMARY | ~2018-11-27 | XMS | Clinical Summary ---
Demographics + + + | Address | [address] | | | [place] [address] | + + + | Home Phone | | + + + | Preferred Language | Unknown | + + + | Marital Status | Single | + + + | Oriental Orthodox Affiliation | Unknown | + + + | Race | Unknown | + + + | Ethnic Group | Unknown | + + + Author + + + | Author | [facility] (Historical as of | | | 09-30-18) | + + + | Organization | [facility] (Historical as of | | | 09-30-18) [...] Team Providers + +------+ + | Care Shell Fisherman Name | Role | Phone | + [...] Sun | | | | | | [address] | | | | | | | [...] +------+-------+ + | MEDICAID | JAEER | [id number] | | | [address] | | | [place] | | | | [place] | | | [place] | | | | [address] | | | ABORIGINAL LIAISON OFFICER | | | | | + +--------+ [...] | farhat | | | [address] | [address] | + +--------+ +--------+ + +
--- OUTSIDE RECORDS SUMMARY | ~2018-11-27 | XMS | Clinical Summary ---
Demographics + + + | Address | [address] | | | [place] [address] | + + + | Home Phone | | + + + | Preferred Language | Unknown | + + + | Marital Status | Single | + + + | Spiritism Affiliation | Unknown | + + + | Race | Unknown | + + + | Ethnic Group | Unknown | + + + Author + + + | Author | [facility] | | | and [place] | + + + | Organization | [facility] | | | and [...] Team Providers + +------+ + | Care Talent Development Director Name | Role | Phone | + +------+ + | Renard Easley DO | PCP | | + +------+ + Allergies + [...] | Penicillins | Other (See Comments) | | 03/08/19 | Don't know | | | | | 15 | [...] | | + + + +---------+------+------+-------+ | Cholecalciferol | Take 5,000 Units by | | 0 | | | Activ | | (VITAMIN D PO) | mouth Daily. | | | | | e | + + + +---------+------+------+-------+ | fingolimod | Take 0.5 mg by | | 0 | 12/15 | | Activ | | (GILENYA) 0.5 mg | mouth. | | | 11/03 | | e | | capsule | | | | 18 | | | + + + +---------+------+------+-------+ | acetaminophen | Take 500 mg by mouth | | 0 | | | Activ | | (TYLENOL) 500 mg | 6 times daily. | | | | | e | | tablet | | | | | | | + + + +---------+------+------+-------+ | | | | 1 | 05/2 | | Activ | | levonorgestrel-ethin | | | | 4/20 | | e | | yl estradiol | | | | 19 | | | | (LYBREL) 90-20 MCG | | | | | | | | per tablet | | | | | | | + + + +---------+------+------+-------+ | tiZANidine | | | 0 | 07/1 | | Activ | | (ZANAFLEX) 4 mg | | | | 7/20 | | e | | tablet | | | | 19 | | | + + + +---------+------+------+-------+ | gabapentin | 2 tabs PO TID | 180 | 4 | 07/2 | | Activ | | (NEURONTIN) 600 MG | | tablet | | 3/20 | | e | | tabletIndications: | | | | 19 | | | | MS (multiple | | | | | | | | sclerosis) (HCC), | | | | | | | | Right leg numbness | | | | | | | + + + +---------+------+------+-------+ Active Problems + + + | Problem | Noted Date | + + + | Claustrophobia | 07/26/2018 | + + + | Mixed hyperlipidemia | 07/26/2018 | + + + | Chondromalacia, patella, left | 07/26/2018 | + + + | MS (multiple sclerosis) | | + + + | Tobacco dependence | | + + + | Paronychia of right middle finger | | + + + | Orthostatic hypotension | | + + + | Opioid dependence | | + + + | Nephrolithiasis | | + + + | Left-sided trigeminal neuralgia | | + + + | Hydronephrosis, left | | + + + | Anemia | | + + + Encounters +--------+ + + + + | Date | Type | Specialty | Care Team | Description | +--------+ + + + + | 10/11/ | Telephone | Primary Care | Renard Easley | Referral (Follow up) | | 2018 | | | E, DO | | +--------+ + + + + | 09/29/ | Orders Only | Neurology | Jame Saini, | Multiple sclerosis | | 2018 | | | | ([facility]); Lumbago with | | | | | | sciatica | +--------+ + + + + | 09/05/ | Office | Primary Care | Nicolle, | Right leg numbness | 2018 | Visit | | [facility] | (Primary Dx); MS | | | | | | (multiple sclerosis) | | | | | | ([facility]) | +--------+ + + + + from Last 3 Months Immunizations + + + + | Name | Dates Previously Given | Next Due | + + + + | DTP (PED) | 06/14/1989, 02/19/1986, 01/02/1985, | | | | 1984, 1984 | | + + + + | HIB HBOC CONJUGATE, | 12/03/1986 | | | 4 DOSE (PED) | | | + + + + | INFLUENZA PF | 11/25/2017 | | | QUAD(PED/ADOL/ADULT) | | | | ,PSKT or VIAL | | | + + + + | MMR, 2 DOSE | 09/17/1997, 07/03/1985 | | | (PED/ADULT) | | | + + + + | POLIOVIRUS,OPV | 06/14/1989, 02/19/1986, 1984, | | | (LIVE) | 1984 | | + + + + | TD PF (2 LF TETANUS) | 09/17/1997 | | | (ADOL/ADULT) | | | + + + + | TDAP, (ADOL/ADULT) | 03/02/2018 | | + + + + | VARICELLA, 2 DOSE | 04/29/1998, 10/29/1997 | | | (VARIVAX) | | | + + + + Family History + + +------+ + | Medical History | Relation | Name | Comments | + + +------+ + | Cancer | Maternal | | Multiple Myloma (Great Aunt) | | | Aunt | | | + + +------+ + + +------+--------+ + | Relation | Name | Status | Comments | + +------+--------+ + | Maternal Aunt | | | | + +------+--------+ + Social History + + + +--------+------+ [...] | 75 kg (165 lb 4.8 | 07/31/20181311 PDT | | | oz) | | + + + + | Height | 154.9 cm (5' 1") | 07/31/20181311 PDT | + + + + | Body Mass Index | 31.23 | 07/31/20181311 PDT | + + + + Plan [...] | | | | | [place] [address] | | | | | | [phone] | | | | | | | | +--------+---------+ + + + + + + + + | Health Maintenance | Due Date | Last Done | Comments | + + + + + | Vaccine: | | | | | Pneumococcal - | 4 | | | | (PPSV23 only) Medium | | | | | Risk (1 of 1 - | | | | | PPSV23) | | | | + + + + + | Cervical Cancer | | | | | Screening (Pap) | 5 | | | + + + + + | Vaccine: Influenza | | 11/25/2017, 11/30/2011 | | | (#1) | 9 | | | + + + + + | Primary Care | | 09/05/2018, 07/26/2018, | | | Outreach (Intense | | 03/02/2018, Additional history | | | Risk) | | exists | | + + + + + | Vaccine: | | 03/02/2018, 09/17/1997, | | | Dtap/Tdap/Td (7 - | | 06/14/1989, Additional history | | | Td) | | exists | | + + + + + Results Not on filefrom Last 3 Months Insurance + +--------+ +--------+ +---------+--------+ | Payer | Benefi | Subscriber | Effect | Phone | Address | Type | | | t Plan | ID | varsha | | | | | | / | | Dates | | | | | | Group | | | | | | + +--------+ +--------+ +---------+--------+ | [employer] | [employer] | [id number] | 01/08/ | [phone] | | Medica | | MEDICAID HMO | HEALTH | | 2012-P | 1 | | id | | | MDCD | | [place] | | | | | [place] | | | | | | + +--------+ +--------+ +---------+--------+ | [employer] | [employer] | [id number] | | [phone] | | Medica | | MEDICAID HMO | HEALTH | | [phone]-[id number] | 1 | | id | | | MDCD | | esent | | | | | | [place] | | | | | | + +--------+ +--------+ +---------+--------+ + +--------+ +--------+ + + | Guarantor Name | Accoun | Relation to | Date | Phone | Billing Address | | | t Type | Patient | of | | | | | | | | | | + +--------+ +--------+ + + | Kenny Gallego | Person | Self [birth year] | [address] | | | al/Fam | | 1985 | [phone] | [place], [place] | | | farhat | | | 6 (Home) | [address] | + +--------+ +--------+ + + | Kenny Gallego | Person | Self [birth year] | [address] | | | al/Fam | | 1985 | [phone] | [place] | | | farhat | | | 6 (Home) | [address] | + +--------+ +--------+ + + | KENNY GALLEGO | Person | Self | | | | | | al/Fam | | | | | | | farhat | | | | | + +--------+ +--------+ + + Advance Directives Patient has advance care planning documents on file. For more information, please contact:[facility] [address] [place] [address]
--- OUTSIDE RECORDS SUMMARY | ~2018-11-27 | XMS | Clinical Summary ---
Demographics + + + | Address | [address] | | | [place] [address] | + + + | Home Phone | | + + + | Preferred Language | Unknown | + + + | Marital Status | Single | + + + | Denominational Affiliation | NON | + + + [...] Team Providers + +------+ + | Care Terminal Manager Name | Role | Phone | + +------+ + | Renard Easley DO | PCP | | + +------+ + Source Comments HERMAN is fully live on both [facility] Amb[facility] and [facility] InPatient[facility] Allergies + + + + + + [...]
--- OUTSIDE RECORDS SUMMARY | ~2018-11-27 | XMS | Encounter Summary ---
Demographics + + + | Address | [address] | | | [place] [address] | + + + | Home Phone | | + + + | Preferred Language | Unknown | + + + | Marital Status | Single | + + + | Yazidi Affiliation | NON | + + + | Race | White | + + + | Ethnic Group | Not or | + + + Author + + + | Author | [facility] | + + + | Organization | [facility] | + + + | Address | Unknown | + + + | Phone | Unavailable | + + + Support + + +---------+ + | Name | Relationship | Address | Phone | + + +---------+ + | Nancy Nesbitt | ECON | Unknown | | + + +---------+ + Care Team Providers + +------+ + | Care Service Worker Helper Name | Role | Phone | + [...] [address] | sclerosis) ([facility]); | | | | Ave Mailcode: CH8N | [place], [place] | Trigeminal neuralgia | | | | [facility] | [address] | | | | | and Healing, | [phone] | | | | | [facility] | | | | | | Floor [facility] [place] | | | | | | [address] | | | | | | [phone] | | | +--------+---------+ + + + [...]
--- OUTSIDE RECORDS SUMMARY | ~2018-11-27 | XMS | Encounter Summary ---
Demographics + + + | Address | [address] | | | [place] [address] | + + + | Home Phone | | + + + | Preferred Language | Unknown | + + + | Marital Status | Single | + + + | Judaism Affiliation | NON | + + + | Race | White | + + + | Ethnic Group | Not or | + + + Author + + + | Author | [facility] | + + + | Organization | [facility] | + + + | Address | Unknown | + + + | Phone | Unavailable | + + + Support + + +---------+ + | Name | Relationship | Address | Phone | + + +---------+ + | Nancy Nesbitt | ECON | Unknown | | + + +---------+ + Care Team Providers + +------+ + | Care Flotation Operator Name | Role | Phone | [...] (Primary Dx); Other | | | | [facility] 4th Floor [address] | specified | | | | [address] | [place], [place] | pre-operative | | | | Mailcode: CH4S | [address] | examination; MS | | | | [facility] | [phone] | (multiple sclerosis) | | | | and Healing, | | (HCC); Morbid | | | | Building 1,4th Floor | | obesity ([facility]) | | | | [place], [place] | | | | | | [address] | | | | | | [phone] | | | +--------+---------+ + + + [...] OR NON-STEROIDAL ANTI-INFLAMMATORY DRUGS (NSAIDs) Advil, Aleve, Latia-[place], Anacin, Arthopan, Ascriptin, Aspergum, Aspirin with and [...] Piroxicam, Propoxyphene, Relafen, R obomol, Rufen, Sine-aid, [facility] [place] s cold tablets, Sulindac, Talwin, Tolectin, Triaminici [...] perfume, lotions or powder. Remove any nail bahamian from at least one fingernail. Do not [...] walk. Check in locations Day Stay Unit [phone], [place], fourth floor Room 4519 Check-in times for Hospital Admissions are not available until the day prior to surgery. So meone from your surgeon's office or the hospital will contact you with your check in time. I f you do not hear from anyone by 3:00 PM please call your surgeons' office for [id number] . Going Home Your surgeon will decide [...] it is after office hours, call the [facility] acetylene operator at [phone] and ask them to page your doc [...] tab under ANESTHESIA PREOP EVALUATION. JOSEPH TILLMAN [facility] PREOPERATIVE MEDICINE CLINIC [address] [facility] [address] documented in this e ncounter Plan [...] | + +--------+ + + + | MT COLLECTION VENOUS | Routin | 03/26/2010 | [...] | 5.7 | 4.0 - 5.7 | [facility], | | | A1C,POC | | | [...] | [facility] | [address] | [place] [address] | | | OF CARE TESTS | [...] | + + + + + | [facility] | [address] | [place] [address] | | | PATHOLOGY | [address] [...] | | | DEPARTMENT | | | [place] | | | OF | | | [...] DEPARTMENT OF | [address] | [place] [address] | | | PATHOLOGY | [address] [...] | + + + + + | [facility] | [address] | [place] [address] | | | PATHOLOGY | [address] [...]
--- OUTSIDE RECORDS SUMMARY | ~2018-11-27 | XMS | Encounter Summary ---
Demographics + + + | Address | [address] | | | [place] [address] | + + + | Home Phone | | + + + | Preferred Language | Unknown | + + + | Marital Status | Single | + + + | Zoroastrianism Affiliation | NON | + + + | Race | White | + + + | Ethnic Group | Not or | + + + Author + + + | Author | [facility] | + + + | Organization | [facility] | + + + | Address | Unknown | + + + | Phone | Unavailable | + + + Support + + +---------+ + | Name | Relationship | Address | Phone | + + +---------+ + | Nancy Nesbitt | ECON | Unknown | | + + +---------+ + Care Team Providers + +------+ + | Care Bench Boring Machine Operator Name | Role | Phone | [...] | | | | | | | [address] | | | | | | | [address] | | | | | | | [address] | | | | | | | [facility] | | | | | | | [place] | | | | | | | Pavilion | | | | | | | ([facility]) | | | | | | | [place], | | | | | | | [place] [address] | | | | | | | Phone: | | | | | | | [phone] | | | | | | | Fax: | | | | | | | [phone] | +--------+--------+ + + + + Encounter Details +--------+ + + + + | Date | Type | Department | Care Team | Description | +--------+ + + + + | 03/27/ | Hospital | [facility] [address] | Nehal Lloyd MD | | | 2010 | Encounter | [address] | [address] | | | | | 4 [facility] | [place], [place] | | | | | [place] | [address] | | | | | ([facility]) | [phone] | | | | | [place], [place] | | | | | | [address] | | | | | | [phone] | | | +--------+ + + + [...] with Dr. Nehal Lloyd MD at the [facility] rological Clinic on the 8th floor of the [facility] and [facility]: Please c all to make [...] with [facility] the [facility]: Please c all to make or [...] hours, weekends and holidays, call the Hospital Review Analyst at [phone] and asked to have your doctor paged [...] Performed At | + + + | [id number] | | | [id number] | | | [id number] [facility] N [id number] | | | Date: 03/27/2010 Attending Surgeon: | | | Nehal Lloyd M.D. Co-Attending: Dr. Hernandez | | | Lexx. Long Chain Quiller Tender(s): Mary Todd, | | | Julisa Preoperative [...] MD | | | Nehal Lloyd M.D. [facility] / [id number] / [id number] / [id number] / | | | | | + + + + ---+ | Procedure Note | + ---+ | Mary Todd MD - 03/29/2010 5:45 AM [facility] [id number] | | [id number] [facility] | | N [id number] Date: 03/27/2010 Attending Surgeon: | | Nehal Lloyd M.D. Co-Attending: Dr. Mray Todd. Long Chain Quiller Tender(s): | | Mary Todd M.D. Preoperative Diagnosis(es):1. [...] procedure. MD Nehal Morrell M.D. ALISON / [id number] / [id number] / | | [id number] / T: 03/28/2010 | | | | [...] | | | |DAB / HS | |[id number] / [id number] / [id number] / | | | | | | | | | | | | | | | | | | | | | + ---+ TEACHING PHYSICIAN (03/27/2010 12:00 AM PST) + + + | Narrative | Performed At | + + + | [id number] | | | [id number] | | | [id number] [facility] [place] [id number] | | | Date: 03/27/2010 Attending Surgeon: | | | Nehal Lloyd M.D. Long Chain Quiller Tender(s): | | | Mary Todd MD Preoperative [...] M.D. | | | KJB / HS [id number] / [id number] / [id number] / | | | | | + + + + + | Procedure Note | + + | Nehal Lloyd MD - 03/28/2010 9:15 AM PST [id number] | | [id number] [facility] | | N [id number] Date: 03/27/2010 Attending Surgeon: | | Nehal Lloyd M.D. Long Chain Quiller Tender(s): Mary Todd MD | | Preoperative Diagnosis(es):1. [...] | | andclosure. Nehal Lloyd M.D.TARAN / [id number] / [id number] / [id number] / T: | | 03/27/2010 | | [...] |Nehal Lloyd M.D. | |KJB / | |[id number] / [id number] / [id number] / | | | | | | [...]
--- OUTSIDE RECORDS SUMMARY | ~2018-11-27 | XMS | Encounter Summary ---
Demographics + + + | Address | [address] | | | [place] [address] | + + + | Home Phone | | + + + | Preferred Language | Unknown | + + + | Marital Status | Single | + + + | Scientologist Affiliation | NON | + + + | Race | White | + + + | Ethnic Group | Not or | + + + Author + + + | Author | [facility] | + + + | Organization | [facility] | + + + | Address | Unknown | + + + | Phone | Unavailable | + + + Support + + +---------+ + | Name | Relationship | Address | Phone | + + +---------+ + | Nancy Nesbitt | ECON | Unknown | | + + +---------+ + Care Team Providers + +------+ + | Care Phlebotomist Name | Role | Phone | + [...] | Mary La MD | MD [address] | | | | | neuralgia | [address] | [address] | | | | | [place] (multiple | [facility] | [facility] [place] | | | | | sclerosis) | Rd | [address] | | | | | (HCC) | [place], [place] | Phone: | | | | | Procedures | [address] | [phone] | | | | | REQUEST TO | | Fax: | | | | | SURGERY | | [phone] | | | | | SAFETY COMPANION | | | | | | | [place] [facility] | | | | | | [...] | | | Multiple | CLINIC | [place], [place] | | | | | sclerosis | NEUROLOGY | [address] | | | | | ([facility]) INS: | [address] | Phone: | | | | | Family | [address] | [phone] | | | | | Care/OHP | [place], [place] | Fax: | | | | | | [address] | [phone] | | | | | | Phone: | | | | | | | [phone] | | | | | | | Fax: | | | | | | | [phone] | | +--------+ + + + + + Encounter Details +--------+---------+ + + + | Date | Type | Department | Care Team | Description | +--------+---------+ + + + | 01/29/ | Office | Neurosurgery at | Nehal Lloyd MD | Trigeminal | | 2009 | Visit | [facility] [address] | [address] | neuralgia; MS | | | | Ave Mailcode: CH8N | [place], [place] | (multiple sclerosis) | | | | [facility] | [address] | ([facility]) | | | | and [facility], | [phone] | | | | | [facility] | | | | | | Floor [place], [place] | | | | | | [address] | | | | | | [phone] | | | +--------+---------+ + + + [...]
--- OUTSIDE RECORDS SUMMARY | ~2018-11-27 | XMS | Encounter Summary ---
Demographics + + + | Address | [address] | | | [place] [address] | + + + | Home Phone | | + + + | Preferred Language | Unknown | + + + | Marital Status | Single | + + + | Sikh Affiliation | Unknown | + + + | Race | Unknown | + + + | Ethnic Group | Unknown | + + + Author + + + | Author | [facility] | | | and [place] | + + + | Organization | [facility] | | | and [...] Team Providers + +------+ + | Care Submarine Worker Name | Role | Phone | + [...] | | | [facility] [address] | [place], [place] | | | | | [address] [place], | [address] | | | | | [place] [address] | [phone] | | | | | [phone] | | | +--------+ + + + [...] | | | | | [place] [address] | | | | | | [phone] | | | | | | | | +--------+---------+ + + + documented as of this encounter Visit Diagnoses Not on filedocumented in this encounter"
--- OUTSIDE RECORDS SUMMARY | ~2018-11-27 | XMS | Clinical Summary ---
Demographics + + + | Address | [address] | | | [place] [address] | + + + | Home Phone | | + + + | Preferred Language | Unknown | + + + | Marital Status | Single | + + + | Congregation Affiliation | Unknown | + + + | Race | Unknown | + + + | Ethnic Group | Unknown | + + + Author + + + | Author | [facility] | | | and [place] | + + + | Organization | [facility] | | | [...] Team Providers + +------+ + | Care Director Of [employer] Name | Role | Phone | + [...] | | 2018 | | | | ([facility]); Lumbago with | | | | | | sciatica | +--------+ + + + + | 09/05/ | Office | Primary Care | [place], | Right leg numbness | 2018 | Visit | | [facility] | (Primary Dx); MS | | | | | | (multiple sclerosis) | | | | | | ([facility]) | +--------+ + + + + from [...] | | | | | [place] [address] | | | | | | [phone] | | | | | | | [...] | [employer] | [employer] | [id number] | 01/08/ | [phone] | | Medica | | MEDICAID HMO | HEALTH | | 2012-P | 1 | | id | | | MDCD | | resent | | | | | | [place] | | | | | | + +--------+ +--------+ +---------+--------+ | [employer] | [employer] | [id number] | | [phone] | | Medica | | MEDICAID HMO [...] | | al/Fam | | 1985 | [phone] | [employer] A[employer]LY[employer] [place] | | | farhat | | | 6 (Home) | [address] | + +--------+ +--------+ + + | Kenny Gallego | Person | Self | [birth year] | [address] | | | al/Fam | | 1985 | [phone] | [employer] [place], [place] | | | farhat | | | 6 (Home) | [address] | + +--------+ +--------+ + + | KENNY GALLEGO | Person | Self | | | | | | al/Fam | | | | | | | farhat | | | | | + +--------+ +--------+ + + Advance Directives Patient has advance care planning documents on file. For more information, please contact:[facility] [place] [address]
[~2018-11-27 03:09] MED LIST: AMETHYST1 EACH PO; AVEENO BATH1 EACH TP; AZITHROMYCIN250 MG PO; BACLOFEN20 MG PO; BACTRIM DS TAB1 EACH PO; CEPHALEXIN500 MG PO; CLINDAMYCIN HC300 MG PO; CORTISPORIN EAR10 ML AU; CYCLOBENZAPRINE5 MG PO; DICLOFENAC SODI75 MG PO; DILANTIN100 MG PO; DILAUDID2 MG PO; FLOMAX0.4 MG PO; GABAPENTIN300 MG PO; GILENYA0.5 MG PO; GUIATUSS AC SY120 M1 PO; HYDROCODON-ACE1 EAC8 PO; IBUPROFEN600 MG PO; IBUPROFEN800 MG PO; KEFLEX500 MG PO; KETOROLAC TROME10 MG PO; LEVAQUIN500 MG PO; LEVAQUIN750 MG PO; LEVONOR-ETH ES1 EACH PO; MACROBID 100 M100 MG PO; NORCO 10-325 T1 EACH PO; NORCO 5-325 TA1 EACH PO; PERCOCET 5-3251 EACH PO; PREDNISONE20 MG PO; PROMETHAZINE HC25 M1 PO; PYRIDIUM200 MG PO; REGLAN10 MG PO; TRAMADOL HCL50 MG PO; VICODIN 5-5001 EACH PO; VISTARIL50 MG PO; VITAMIN D5000 UNIT PO; ZANAFLEX4 M1 PO; ZANAFLEX4 MG PO; ZOFRAN4 MG PO; ZONISAMIDE100 MG PO
== END 2018-11-27 04:38 | disposition home or self-care (01) ==
LOC: ED 03:09
DX: S89.201A Unspecified physeal fracture of upper end of right fibula, initial encounter for closed fracture (principal); F17.200 Nicotine dependence, unspecified, uncomplicated; Z88.0 Allergy status to penicillin; Z88.8 Allergy status to other drugs, medicaments and biological substances; Z79.899 Other long term (current) drug therapy; W18.30XA Fall on same level, unspecified, initial encounter
CPT/HCPCS: 73590; 99283

== ENCOUNTER 2024-07-21 21:02 | Emergency (ER) | payer OTHER ==
[~2024-07-21] VITALS: Ht 154.9 cm; Wt 77.6 kg
[2024-07-21] MEDS ORDERED: SODIUM CHLORIDE 0.9% 1,000 ML IV ONE (21:45)
[2024-07-21] MEDS ORDERED: MORPHINE SULFATE 4 MG/ML VIAL IV ONE (21:45)
[2024-07-21] MEDS ORDERED: ondansetron HCL 4 MG/2 ML VIAL IV ONE (21:45)
[2024-07-21] MEDS ORDERED: METOPROLOL TAR100 MG PO (21:46)
[2024-07-21] MEDS ORDERED: HYDROXYZINE HCL25 MG PO (21:46)
[2024-07-21 21:49] LABS: BILIRUBIN, URINE NEGATIVE (negative); BLOOD/HGB, URINE LARGE (Negative); KETONE, URINE NEGATIVE (Negative); LEUK ESTERASE, URINE NEGATIVE (negative); NITRITE, URINE NEGATIVE (negative)
[2024-07-21 22:01] LABS: CRYSTALS, URINE NONE SEEN (0-1+); EPITHELIAL CELLS, URINE SQUAMOUS 2+ /lpf (0-1+); RED BLOOD CELLS, URINE >50 /hpf (0-5)
[2024-07-21 22:02] LABS: BACTERIA, URINE RARE /hpf (negative); CASTS, URINE NONE SEEN \\lpf; COLLECTION TYPE, URINE CLEAN CATCH; REFLEX CULTURE, URINE No (No)
[2024-07-21 22:21] LABS: ALBUMIN 3.2 g/dL (3.4-5.0); ALBUMIN/GLOBULIN RATIO 0.84 (1.1-2.4); ANION GAP 11.2 (7-21); BILIRUBIN, TOTAL 0.2 mg/dL (0.2-1.0); BUN/CREATININE RATIO 10.22 (6.0-28.6); CALCIUM 8.2 mg/dL (8.5-10.1); CREATININE, SERUM 0.88 mg/dL (0.55-1.02); POTASSIUM 3.2 mmol/L (3.5-5.1)
[2024-07-21] MEDS ORDERED: PERCOCET 5-3251 EACH PO (23:28)
[2024-07-21] MEDS ORDERED: FLOMAX0.4 MG PO (23:28)
[2024-07-21] MEDS ORDERED: ONDANSETRON ODT8 MG PO (23:28)
[2024-07-21] MEDS ORDERED: OXYCODONE/ACETAMINOPHEN 1 TAB HOME.PACK PO ONE (23:30)
[2024-07-21] MEDS ORDERED: ONDANSETRON 4 MG HOME.PACK SL ONE (23:30)
[2024-07-21] MEDS ORDERED: TAMSULOSIN HCL 0.4 MG CAP PO ONE (23:30)
[2024-07-21 23:43] VITALS: BP 139/87
== END 2024-07-21 23:44 | disposition home or self-care (01) ==
LOC: ED 21:02
PROVIDERS: Family Medicine
DX: N13.2 Hydronephrosis with renal and ureteral calculous obstruction (principal); Z87.891 Personal history of nicotine dependence; Z88.0 Allergy status to penicillin; Z88.8 Allergy status to other drugs, medicaments and biological substances; Z79.899 Other long term (current) drug therapy
CPT/HCPCS: 36415; 74177; 80053; 81001; 83690; 83735; 84703; 96375; 99284-25; A9270; J2270; J2405; J7030; Q9967

== ENCOUNTER 2024-08-13 05:37 | Day surgery (SDC) | payer OTHER ==
[2024-08-10 15:16] VITALS: BP 146/102
[2024-08-10 15:40] VITALS: BP 146/102
[~2024-08-13] VITALS: Ht 154.9 cm; Wt 72.6 kg
[~2024-08-13 05:37] MED LIST changes: +HYDROXYZINE HCL25 MG PO; +LACTATED RINGER'S 1,000 ML IV SCH; +METOPROLOL TAR100 MG PO; +OCREVUS300 MG/10 IV; +ONDANSETRON ODT8 MG PO; +[UNRECOGNIZED DRUG - OTHER]
[2024-08-13 06:08] VITALS: BP 145/101
[2024-08-13] MEDS ORDERED: iopamidoL 30 ML VIAL ONE (06:47)
[2024-08-13 06:56] LABS: ANION GAP 13.3 (7-21); BUN/CREATININE RATIO 9.21 (6.0-28.6); CREATININE, SERUM 0.76 mg/dL (0.55-1.02); POTASSIUM 3.3 mmol/L (3.5-5.1)
[2024-08-13] MEDS ORDERED: LIDOCAINE HCL 1% 5 ML SDV INJ ONE (07:00)
[2024-08-13] MEDS ORDERED: IBLOOD GLUCOSE TEST STRIP 1 EA TEST VI PRN ×2 (07:00→08:30)
[2024-08-13] MEDS ORDERED: CEFAZOLIN SODIUM 2 GM/20 ML SYR IV SCH (07:00)
[2024-08-13] MEDS ORDERED: HYDROmorphone HCL 1 MG/ML SYR IV PRN ×2 (07:30→08:30)
[2024-08-13] MEDS ORDERED: ondansetron HCL 4 MG/2 ML VIAL ONE (07:30)
[2024-08-13] MEDS ORDERED: fentaNYL citrate 100 MCG/2 ML VIAL ONE (07:30)
[2024-08-13] MEDS ORDERED: LIDOCAINE HCL 2% 5 ML SDV ONE (07:30)
[2024-08-13] MEDS ORDERED: OXYCODONE/APAP 5/325 TAB PO PRN (07:30)
[2024-08-13] MEDS ORDERED: propofoL 200 MG/20 ML VIAL ONE ×2 (07:30→08:40)
[2024-08-13] MEDS ORDERED: ondansetron HCL 4 MG/2 ML VIAL IV PRN (07:30)
[2024-08-13] MEDS ORDERED: KETOROLAC TROMETHAMINE 15 MG/ML VIAL IV PRN (07:30)
[2024-08-13] MEDS ORDERED: BUPIVACAINE 0.75% IN DEXTROSE 2 ML AMP ONE (07:31)
[2024-08-13] MEDS ORDERED: MIDAZOLAM HCL 2 MG/2 ML VIAL ONE (07:31)
--- NOTE | 2024-08-13 07:46 | NUR ---
PT NOT AVAILABLE FOR VISIT. PROVIDED PRAYER.
[2024-08-13] MEDS ORDERED: droPERidol 5 MG/2 ML VIAL IV PRN (08:30)
[2024-08-13] MEDS ORDERED: NALOXONE HCL 0.4 MG SYR IV PRN (08:30)
[2024-08-13] MEDS ORDERED: fentaNYL citrate 50 MCG/ML SDV IV PRN (08:30)
[2024-08-13 09:47] VITALS: BP 166/88
--- NOTE | 2024-08-13 09:47 | NUR ---
PT ARRIVED BACK TO ON RA, AAOX3, ANSWERING QUESTIONS APPROPRAITELY, AND ABLE TO MAKE HER NEEDS KNOWN. PTS MOTHER AND FATHER IN ROOM UPON HER ARRIVAL BACK. REPORT RECEIVED FROM MANAGER TRUST. STENT STRING VISUALIZED WITH MANAGER TRUST AND NOTED TO BE SECURED TO MONS PUBIS AREA WITH STERI STRIPS. NO DRAINAGE NOTED. PT DENIES PAIN OR NAUSEA WHEN ASKED. VS TAKEN. IV SITE ASSESSED AND NOTED TO BE SL'D UPON ARRIVAL BACK TO . BED IN LOW POSITION, WHEELS LOCKED, BILAT RAILS IN PLACE. CALL LIGHT WITHIN PT REACH. PT PROVIDED WITH ICE WATER AND PUDDING. RX GIVEN TO PTS FAMILY TO TAKE TO [facility].
--- NOTE | 2024-08-13 09:55 | NUR ---
[facility]. 921 PT GRABBING AT FACE AND HITTING STAFF WHO ARE TRYING TO PROTECT THE PT'S EYES FROM BEING SCRATCHED. 924 PT STATES "I WAS IN A DREAM, NOW I'M OK." 929 SITTING UP IN BED. NO C/O'S. 0947 TO DS. REPORT GIVEN TO RN. FAMILY AT BEDSIDE.
[2024-08-13 10:47] VITALS: BP 146/96
--- NOTE | 2024-08-13 11:24 | NUR ---
1047-INTO PTS ROOM FOR ROUTINE REASSESSMENT. VS TAKEN. IV SITE ASSESSED. PT DENIES NAUSEA WHEN ASKED. PT RATES PAIN AT 4/10 AND IS REQUESTING PAIN MEDICATION. PT REFUSES TO ALLOW RN TO ASSESSENT EXTERNAL STENT STRING PLACEMENT. FAMILY REMAINS GONE AT PHARMACY PICKING UP PTS MEDICATIONS. PT HAS TOLERATED PO FOOD AND FLUIDS W/O ISSUES. PT PROVIDED WITH VERBAL AND WRITTEN DISCHARGE EDUCATION. ALL QUESTIONS ANSWERED. PT VERBALIZED UNDERSTANDING. PT REPORTS URGE TO VOID BUT IS REFUSING BED PRICE AND WOULD LIKE TO WAIT TO USE RESTROOM UNTIL SPINAL RESOLVES. SPINAL LEVEL CURRENTLY AT L4. BED IN LOW POSITION, CALL LIGHT WITHIN PT REACH. BILAT RAILS IN PLACE. 1110-PO PAIN MEDICATION GIVEN PER EMAR. PT REPORTS NAUSEA STARTING AND FEELS IT WILL WORSEN WITH TAKING PO PAIN MEDICATION. PT REQUESTING ANTI-NAUSEA MEDS. 1112-CALL PLACED TO DR. TAVARES WITH REQUEST FOR ANTINAUSEA MEDS. VERBAL ORDER RECEIVED FOR 25 MG PHENERGAN RECTALLY X1. RELAYED TO DR. TAVARES THAT PT WOULD LIKELY REFUSE THIS ROUTE. NO ADDITIONAL ORDERS RECEIVED. 1115-INTO PTS ROOM TO DISCUSS ORDER WITH PT. UPON ENTERING ROOM PT NOTED TO BE PUTTING PILL INTO HER MOUTH AND WAS SEEN SWALLOWING. PT REPORTS MEDICATION SHE TOOK WAS ZOFRAN. THIS NURSE BEGAN TO SPEAK AND FAMILY INTERUPTED THIS RN TO ASK "IS THAT OKAY". THIS NURSE WENT ONTO SAY "WELL, NO, ITS TOO SOON TO TAKE MORE, YOU RECEIVED 8MG IN YOUR CASE AROUND 8AM AND IT SHOULD BE 8 HOURS APART", HOWEVER PT HAD ALREADY SWALLOWED THE MEDICATION AT THE TIME THIS RN WALKED IN. INSTRUCTED PT NOT TO TAKE ANY FURTHER ZOFRAN FOR 8 HOURS FROM NOW. PT VERBALIZED UNDERSTANDING. REPORTED ISSUES TO APPLICATION SYSTEMS ENGINEER.
[2024-08-13 11:47] VITALS: BP 140/102
--- NOTE | 2024-08-13 11:47 | NUR ---
INTO PTS ROOM FOR ROUTINE REASSESSMENT. VS TAKEN. IV SITE ASSESSED. PT REPORTS NAUSEA RESOLVED AND RATES PAIN AT 1/10 IN KIDNEY/BLADDER AREAS. PT REPORTS THIS TO BE A TOLERABLE LEVEL OF PAIN FOR HER. PTS FAMILY AT BEDSIDE. PT AGAIN REMINDED NOT TO TAKE ANY FURTHER HOME MEDICATIONS WHILE HERE AND VERBALIZED UNDERSTANDING. ALL QUESTIONS ANSWERED. PT ABLE TO WIGGLE TOES BUT SPINAL APPEARS TO BE AT L4. PT DECLINES BED PRICE TO VOID WHEN OFFERED. CALL LIGHT WITHIN PT REACH.
--- NOTE | 2024-08-13 12:25 | NUR ---
1210-INTO PTS ROOM TO ANSWER CALL LIGHT. PT REPORTS BEING ABLE TO MOVE FEET AND LIFT LEGS OFF BED. PT REPORTS SHE FEELS HER SPINAL HAS WORN OFF. DERMATOME LEVEL CHECK SHOWS SPINAL WORE OFF. PT ASSISTED WITH TRASNFERRING FROM BED TO , THEN WC TO TOILET. PT ABLE TO VOID APPROX 150ML OF BLOOD TINGED URINE. NO VISIBLE CLOTS PRESENT. PT ASSITED BACK TO THEN TO ROOM. PT ASSISTED WITH DRESSING. IV REMOVED. TIP APPEARS INTACT. PRESSURE DRSG APPLIED.
--- NOTE | 2024-08-13 12:30 | NUR ---
PT DISCHARGED FROM DS VIA TO LOBBY WITH MOTHER AND REST OF FAMILY. PT AND HER MOTHRE REPORT PTS GRANDFATHER ON HIS WAY. ALL PERSONAL BELONGINGS TAKEN WITH PT.
[2024-08-17 05:42] LABS: CALCULI MASS 155 mg (())
== END 2024-08-13 12:30 | disposition home or self-care (01) ==
LOC: DS 05:37
PROVIDERS: ATTEND Urology
PROC: BT1DZZZ Fluoroscopy of Right Kidney, Ureter and Bladder (ICD-10-PCS; 2024-08-13)
PROC: 0TC68ZZ Extirpation of Matter from Right Ureter, Via Natural or Artificial Opening Endoscopic (ICD-10-PCS; principal; 2024-08-13 07:30)
PROC: 0T7D8DZ Dilation of Urethra with Intraluminal Device, Via Natural or Artificial Opening Endoscopic (ICD-10-PCS; 2024-08-13 07:30)
DX: N20.2 Calculus of kidney with calculus of ureter (principal); G35 Multiple sclerosis; Z79.899 Other long term (current) drug therapy; Z88.0 Allergy status to penicillin; Z88.8 Allergy status to other drugs, medicaments and biological substances
CPT/HCPCS: 00918; 36415; 74018; 74420; 80048; 82365; 84703; C1769; J0690; J2003; J2250; J2405; J2704; J3010; J7121; Q9967